=== PATIENT | male | born 1960 | race African-American/Black ===

== ENCOUNTER 2017-04-25 07:43 | Inpatient (IN) ==
[2017-04-25] MEDS ORDERED: ASPIRIN PO STA (08:10)
[2017-04-25 08:38] LABS: BASO% 0.1 % (0.0-0.8); EOS# 0.13 X1000 (0.0-0.7); EOS% 1.6 % (0.0-10.0); HEMOGLOBIN 15.8 g/dL (14.0-18.0); IMM GRAN# 0.02 X1000 (0.0-0.04); IMM GRAN% 0.3 % (0.0-0.5); LYMPH# 0.99 X1000 (1.2-3.4); LYMPH% 12.4 % (20.5-51.1); MANUAL DIFF NEEDED? NO; MCH 32.6 PG (27-31); MCHC 37.6 g/dL (33-37); MCV 86.8 FL (81-99); MONO# 0.76 X1000 (0.11-0.59); MONO% 9.5 % (1.7-9.3); MPV 9.9 FL (7.4-10.4); NEUT% 76.1 % (42.2-75.2); PLT 315 X1000 (130-400); RBC 4.84 XMIL (4.7-6.1)
[2017-04-25 08:41] LABS: INR 0.95; PROTIME 9.9 Seconds (9.2-11.7); PTT 28.7 Seconds (22.0-36.0)
[2017-04-25] MEDS ORDERED: ZOFRAN IV ONE ×2 (08:41→09:58)
[2017-04-25] MEDS ORDERED: TORADOL IV ONE (08:50)
--- NOTE | 2017-04-25 09:01 | EKG Report ---
Test Performed on : 04/25/2017 07:40:44 AM Test Reason : Chest Pain Blood Pressure : / mmHG Vent. Rate : 086 BPM Atrial Rate : 086 BPM P-R Int : 202 ms QRS Dur : 074 ms QT Int : 394 ms P-R-T Axes : 059 045 051 degrees QTc Int : 471 ms Normal sinus rhythm. Possible Left atrial enlargement Left ventricular hypertrophy Nonspecific T wave abnormality Prolonged QT Abnormal ECG When compared with ECG of 24-NOV-2010 14:37, Nonspecific T wave abnormality, worse in Anterior leads Unconfirmed Result
[2017-04-25 09:30] LABS: AGAP 22; ALBUMIN 4.5 g/dL (3.5-5.0); ALKALINE PHOSPHATASE 111 U/L (32-122); BUN 11 mg/dL (8-22); CALCIUM 9.9 mg/dL (8.8-10.2); CHLORIDE 67 mmol/L (98-107); CK PROFILE > 20000 U/L (24-204); COSMO 222; GOT 509 U/L (10-34); GPT 163 U/L (10-44); MAGNESIUM 1.8 mg/dL (1.5-2.7); POTASSIUM 3.5 mmol/L (3.5-5.1); TCO2 20 mmol/L (25-35); TOTAL BILIRUBIN 1.41 mg/dL (0.20-1.00); TOTAL PROTEIN 8.1 g/dL (6.3-8.3)
[2017-04-25 09:32] LABS: SODIUM 110 mmol/L (136-145)
--- NOTE | 2017-04-25 09:40 | ED EKG INTERP ---
This chart was entered by Kyara Hutchinson Scribe, acting as scribe for Nael Villarreal MD. EKG Interpretation - EKG Time of EKG reading by physician:: 07:40 EKG Read and Signed by:: Nael Villarreal EKG Interpretation (*Must complete 3 of following elements*): Abnormal Rate: 86 Rhythm: nsr [place]: left (atrial enlargment) QRS: other (left ventricular hypertrophy) OK Interval: prolonged ST Wave: non-specific ST changes Attestation - Physician/ JASPER Attestation The physician spent face to face time with patient:: Yes Advanced Practice Provider documentation review:: Supervising physician onsite and consulted in the evaluation and care of this patient. The physician did have a face to face encounter with the patient. This chart was documented by the indicated scribe, (Kyara Hutchinson Scribe) and accurately reflects the services I performed and decisions made by Cherelle carrington Christophe I, MD, as attested by the provider's signature.
[2017-04-25] MEDS ORDERED: NS 1,000 ML IV ONE ×2 (09:56→14:15)
[2017-04-25] MEDS ORDERED: DILAUDID IV ONE (09:58)
[2017-04-25 10:08] LABS: URINE CULTURE NEEDED? NO; URINE MICRO REVIEW NEEDED? NO; URINE SOURCE CLEAN CATCH
[2017-04-25] MEDS ORDERED: DILAUDID ONE (10:19)
[2017-04-25 10:28] LABS: BILIRUBIN URINE NEGATIVE (NEGATIVE); BLOOD URINE LARGE (NEGATIVE); COLOR YELLOW; GLUCOSE URINE NEGATIVE (NEGATIVE); LEUKOCYTES URINE NEGATIVE (NEGATIVE); NITRITE URINE NEGATIVE (NEGATIVE); PH URINE 7.5; PROTEIN URINE 30 mg/dL (NEGATIVE); SP GRAVITY URINE 1.007; TURBIDITY URINE CLEAR (CLEAR); UROBILINOGEN URINE NORMAL (NORMAL)
[2017-04-25 10:29] LABS: UR EPITHELIAL CELLS <10 /HPF (<10); URINE BACTERIA 1+ /HPF; URINE RBC <10 /HPF (<10); URINE WBC <10 /HPF (<10)
[2017-04-25 10:57] LABS: AGAP 19; ALBUMIN 4.6 g/dL (3.5-5.0); ALKALINE PHOSPHATASE 109 U/L (32-122); BUN 12 mg/dL (8-22); CALCIUM 9.3 mg/dL (8.8-10.2); CHLORIDE 71 mmol/L (98-107); COSMO 226; GOT 464 U/L (10-34); GPT 147 U/L (10-44); POTASSIUM 3.5 mmol/L (3.5-5.1); TCO2 21 mmol/L (25-35); TOTAL BILIRUBIN 1.47 mg/dL (0.20-1.00); TOTAL PROTEIN 7.8 g/dL (6.3-8.3)
[2017-04-25 11:03] LABS: SODIUM 111 mmol/L (136-145)
--- NOTE | 2017-04-25 11:03 | Diag Imaging Result Doc PS360 ---
EXAM: US GB < RUQ (LIMITED) HISTORY: lfts TECHNIQUE: Right upper quadrant ultrasound COMMENT: The visualized portions of the head of the pancreas are within normal limits. The visualized portions of the aorta and inferior vena cava are within normal limits. There is antegrade flow in the portal vein. There is no evidence of biliary dilatation the common bile duct measuring 7 mm. The liver is otherwise unremarkable. The gallbladder is clear and nontender. The right kidneys without evidence of hydronephrosis or mass. IMPRESSION: No evidence of acute disease. Electronically signed by Ezra Mittal 04/25/2017 11:00 AM
--- NOTE | 2017-04-25 11:51 | PROVIDER DOCUMENTATION ---
This chart was entered by Kyara Hutchinson Scribe, acting as scribe for Nael Villarreal MD. HPI-Chest Pain - General Chief Complaint: Chest Pain Stated Complaint: CHEST PAIN Time Seen by Provider: 04/25/17 08:10 Source: patient Allergies/Adverse Reactions: Patient Allergies Allergy/AdvReac Type Severity Reaction Status Date / Time No Known Allergies Allergy Verified 09/28/14 02:56 Home Medications: Home Medication List Medication Instructions Recorded Confirmed Last Taken Type Amlodipine Besylate [Amlodipine 10 mg PO DAILY 04/25/17 04/25/17 04/25/17 06:00 History Besylate] Citalopram [Celexa] 40 mg PO QHS 04/25/17 04/25/17 04/24/17 21:00 History Hydrocodone/Acetaminophen 1 each PO Q8H PRN 04/25/17 04/25/17 Unknown History [Hydrocodon-Acetaminophen 5-325] Losartan/Hydrochlorothiazide 1 each PO DAILY 04/25/17 04/25/17 04/25/17 06:00 History [Hyzaar 50-12.5 Tablet] Zolpidem Tartrate [Zolpidem 0.5 - 1 tab PO QHS PRN 04/25/17 04/25/17 Unknown History Tartrate] - History of Present Illness-CP Nature of Presenting Problem: 56 y/o M presents to ED per EMS. Pt was brought in today due to R sided chest pain. Pt states he also has abd pain with some N/V. Pt has had colon removed in the past. Pt is alert and oriented. Location: reports: abdomen, other (R side) Chest Pain Radiation: reports: no radiation Quality of Pain: reports: aching Severity in ED: mild Onset/Duration: just prior to arrival Timing: still present Context/Activities at Onset: reports: light activity Modifying Factors: improves with: nothing Associated Symptoms: reports: abdominal pain, nausea, vomiting. denies: fever/ chills, shortness of breath Aspirin Treatment Today: provided by EMS Review of Systems - Adult - REVIEW OF SYSTEMS - ADULT Constitutional: denies: chills, fever Cardiovascular: reports: chest pain. denies: palpitations Respiratory: denies: cough, shortness of breath Gastrointestinal: reports: abdominal pain, nausea, vomiting. denies: diarrhea Neurological: denies: dizziness/vertigo, headache/migraines Past History - Adult - PAST MEDICAL HISTORY-ADULT Review of Records: reports: Old Records Reviewed, Nursing Assessment Review Major Childhood Illnesses: reports: denies history Cardiovascular: reports: HTN Gastrointestinal: reports: GI bleed (upper), ulcer Musculoskeletal: reports: arthritis (Gout) - PRIOR SURGERIES/PROCEDURES Surgical/Procedure History: reports: bowel surgery, orthopedic (extremity) - IMMUNIZATION STATUS Childhood Immunizations: See Nurse Assessment Flu Vaccine: See Nurse Assessment - SOCIAL HISTORY Smoking: quit greater than 1 year Substance Use: alcohol Alcohol Use Frequency: occasionally Physical Exam-General - PHYSICAL EXAM-ADULT Initial Vital Signs Reviewed: Yes - CONSTITUTIONAL General Appearance: appears well, alert, no apparent distress - EYES Eyes: PERRL/EOMI, pink conjunctivae - HEAD, EARS, NOSE, MOUTH & THROAT HENMT: normocephalic/atraumatic, moist mucous membranes, normal ENT inspection - NECK Neck: non-tender, full range of motion - RESPIRATORY Respiratory: chest non-tender, lungs clear, normal breath sounds. negative: respiratory distress, decreased breath sounds, accessory muscle use - CARDIOVASCULAR Cardiovascular: normal peripheral pulses, regular rate, rhythm - GASTROINTESTINAL (ABDOMEN) Abdominal Exam: normal bowel sounds, non tender, soft. 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5 H Eos % (Auto) 1.6 Baso % (Auto) 0.1 Immature Gran # (Auto) 0.02 Neut # (Auto) 6.09 Lymph # (Auto) 0.99 L Barron # (Auto) 0.76 H Eos # (Auto) 0.13 Baso # (Auto) 0.01 PT INR PTT (Actin FS) Sodium 110 L* Potassium 3.5 Chloride 67 L Carbon Dioxide 20 L Anion Gap 22 BUN 11 Creatinine 1.1 Estimated GFR/1.73 m2 > 60 BUN/Creatinine Ratio 10 Glucose 118 H Calculated Osmolality 222 Calcium 9.9 Magnesium 1.8 Total Bilirubin 1.41 H AST 509 H ALT 163 H Alkaline Phosphatase 111 Creatine Kinase > 48415 H Creatine Kinase Index Not Reportable CK-MB (CK-2) 137.70 H Troponin T Vbi-P-Fguivxqigle Pept 16 Total Protein 8.1 Albumin 4.5 Globulin 3.6 Albumin/Globulin Ratio 1.3 Lipase Urine Source Urine Color Urine Turbidity Urine pH Ur Specific [place] Urine Protein Ur Glucose (Stick) Ur Ketones (Stick) Urine Blood Urine Nitrite Urine Bilirubin Urobilinogen Dipstick Urine Leukocytes Urine WBC (Auto) Urine RBC (Auto) U Epithel Cells (Auto) Urine Bacteria (Auto) 04/25/17 04/25/17 04/25/17 08:15 08:15 10:01 WBC RBC Hgb Hct MCV MCH MCHC RDW Std Deviation Plt Count MPV Immature Gran % (Auto) Neut % (Auto) Lymph % (Auto) Barron % (Auto) Eos % (Auto) Baso % (Auto) Immature Gran # (Auto) Neut # (Auto) Lymph # (Auto) Barron # (Auto) Eos # (Auto) Baso # (Auto) PT 9.9 INR 0.95 PTT (Actin FS) 28.7 Sodium Potassium Chloride Carbon Dioxide Anion Gap BUN Creatinine Estimated GFR/1.73 m2 BUN/Creatinine Ratio Glucose Calculated Osmolality Calcium Magnesium Total Bilirubin AST ALT Alkaline Phosphatase Creatine Kinase Creatine Kinase Index CK-MB (CK-2) Troponin T < 0.010 Gdn-Q-Maxzimeaivq Pept Total Protein Albumin Globulin Albumin/Globulin Ratio Lipase Urine Source CLEAN CATCH Urine Color YELLOW Urine Turbidity CLEAR Urine pH 7.5 Ur Specific [place] 1.007 Urine Protein 30 A Ur Glucose (Stick) NEGATIVE Ur Ketones (Stick) NEGATIVE Urine Blood LARGE A Urine Nitrite NEGATIVE Urine Bilirubin NEGATIVE Urobilinogen Dipstick NORMAL Urine Leukocytes NEGATIVE Urine WBC (Auto) <10 Urine RBC (Auto) <10 U Epithel Cells (Auto) <10 Urine Bacteria (Auto) 1+ 04/25/17 04/25/17 10:15 10:35 WBC RBC Hgb Hct MCV MCH MCHC RDW Std Deviation Plt Count MPV Immature Gran % (Auto) Neut % (Auto) Lymph % (Auto) Barron % (Auto) Eos % (Auto) Baso % (Auto) Immature Gran # (Auto) Neut # (Auto) Lymph # (Auto) Barron # (Auto) Eos # (Auto) Baso # (Auto) PT INR PTT (Actin FS) Sodium 111 L* Potassium 3.5 Chloride 71 L Carbon Dioxide 21 L Anion Gap 19 BUN 12 Creatinine 1.2 Estimated GFR/1.73 m2 > 60 BUN/Creatinine Ratio 10 Glucose 108 H Calculated Osmolality 226 Calcium 9.3 Magnesium Total Bilirubin 1.47 H AST 464 H ALT 147 H Alkaline Phosphatase 109 Creatine Kinase Creatine Kinase Index CK-MB (CK-2) Troponin T Mix-X-Ctfzwlmvxam Pept Total Protein 7.8 Albumin 4.6 Globulin 3.2 Albumin/Globulin Ratio 1.4 Lipase 38 Urine Source Urine Color Urine Turbidity Urine pH Ur Specific [place] Urine Protein Ur Glucose (Stick) Ur Ketones (Stick) Urine Blood Urine Nitrite Urine Bilirubin Urobilinogen Dipstick Urine Leukocytes Urine WBC (Auto) Urine RBC (Auto) U Epithel Cells (Auto) Urine Bacteria (Auto) Orders Category Date Time Status Cardiac Monitoring DIRECTED Care 04/25/17 08:10 Active Oxygen Therapy- ED Nursing DIRECTED Care 04/25/17 08:10 Active Saline Loc NOW Care 04/25/17 08:10 Active US GB < RUQ (LIMITED) [US] Stat Exams 04/25/17 09:55 Completed CBC WITH ELECTRONIC DIFF [HEME] Stat Lab 04/25/17 08:15 Completed CK PROFILE [SP CHEM] Stat Lab 04/25/17 08:15 Completed COMPREHENSIVE METABOLIC PANEL [CHEM] Stat Lab 04/25/17 08:15 Completed COMPREHENSIVE METABOLIC PANEL [CHEM] Stat Lab 04/25/17 10:15 Completed LIPASE [CHEM] Stat Lab 04/25/17 10:35 Completed MAGNESIUM [CHEM] Stat Lab 04/25/17 08:15 Completed PRO B-NATRIURETIC PEPTIDE Stat Lab 04/25/17 08:15 Completed PROTIME WITH INR [COAG] Stat Lab 04/25/17 08:15 Completed PTT [COAG] Stat Lab 04/25/17 08:15 Completed TROPONIN T Stat Lab 04/25/17 08:15 Completed URINALYSIS W/POSS RFLX CULT-1 [URINALYSIS] Stat Lab 04/25/17 10:01 Completed 0.9% Sodium Chloride Inj [Ns] 1,000 ml Med 04/25/17 09:56 Discontinued IV 999 mls/hr Aspirin Med 04/25/17 08:10 Discontinued 325 mg PO STAT STA Hydromorphone [Dilaudid] Med 04/25/17 09:58 Discontinued 0.5 mg IV NOW ONE Hydromorphone [Dilaudid] Med 04/25/17 10:19 Discontinued 2 mg .ROUTE .STK-MED ONE Ketorolac [Toradol] Med 04/25/17 08:50 Discontinued 30 mg IV NOW ONE Ondansetron [Zofran] Med 04/25/17 09:58 Discontinued 4 mg IV NOW ONE Ondansetron [Zofran] Med 04/25/17 08:41 Discontinued 8 mg IV NOW ONE EKG [EKG] Stat Ther 04/25/17 08:10 Draft PLAN: LABS , MONITOR PT Result Diagrams: 04/25/17 08:15 04/25/17 10:15 - CONSULTS/PCP/HOSPITALIST Notification #1 *Consult/PCP/Hospitalist*: (hospitalist NATURAL RESOURCE OFFICER ) Time Discussed: 11:47 Consult Disposition: Admit Departure - Departure Date of Disposition Decision: 04/25/17 Time of Disposition Decision: 11:49 DIAGNOSIS: Hyponatremia Disposition: ADMITTED INPATIENT 09 Certified Medical Emergency: Emergent Condition: Stable Referrals and Follow-Ups: Juan Alcala [Primary Care Provider] - - Critical Care Note This patient required my direct & personal management of CC.: Yes Total Time (mins): 30 Critical Care Statement: This patient required my direct personal management to treat or rule out processes, the absence of which, could potentiallly result in sudden, clinically significant life or limb threatening deterioration. Attestation - Physician/ JASPER Attestation The physician spent face to face time with patient:: Yes Advanced Practice Provider documentation review:: Supervising physician onsite and consulted in the evaluation and care of this patient. The physician did have a face to face encounter with the patient. This chart was documented by the indicated scribe, (Kyara Hutchinson Scribe) and accurately reflects the services I performed and decisions made by , Nael Villarreal MD, as attested by the provider's signature.
--- NOTE | 2017-04-25 12:51 | Diag Imaging Result Doc PS360 ---
EXAM: CT HEAD W/O CONTRAST HISTORY: ams TECHNIQUE: CT of the head without contrast COMMENT: Compared to 10/15/2012 the visualized portion of the left maxillary sinus is now clear. There is no evidence of mass effect, bleed, abnormal extra-axial fluid collection, or hydrocephalus. There is minimal lucency in the periventricular white matter of the frontal lobes particularly on the right which is not as appreciable on the previous study. IMPRESSION: No evidence of acute intracranial disease. Minimal chronic microvascular change. Electronically signed by Ezra Mittal 04/25/2017 12:49 PM
--- NOTE | 2017-04-25 12:55 | Diag Imaging Result Doc PS360 ---
EXAM: CT THORAX/ABD/PELVIS W/O CONT HISTORY: cp; abd pain; low na TECHNIQUE: CT chest without contrast. CT abdomen and pelvis without contrast. Dose reduction protocol. COMPARISON: None. FINDINGS: Chest: No pleural effusions. No cardiomegaly. No thoracic aortic aneurysm. Moderate coronary artery calcifications in the left anterior descending artery. There are scattered calcified granuloma and there are calcified right hilar lymph nodes. Minimal increased markings in the anterior lungs believed to be scarring. No consolidation. There is also scarring in the lung bases. No bronchiectasis. No pneumothoraces. There are old bilateral rib fractures. Abdomen and pelvis: No renal stones. Mild fullness of the upper right ureter. No ureteral stones. Several small stones within the gallbladder. No adjacent inflammation. Normal noncontrasted liver, spleen, and pancreas. Normal adrenal glands. There has been a gastric bypass procedure. Normal aorta. No bowel obstruction. There are small scattered mesenteric nodes in the right lower quadrant. No inflammation about the cecum. No abscess. A Cummins catheter has the urinary bladder decompressed. The prostate is not enlarged. IMPRESSION: Chest: 1. There is evidence of a prior granulomatous infection, but no acute pneumonia. 2. There is a small amount of scarring. 3. Old rib fractures. Abdomen and pelvis: 1. Cholelithiasis 2. Prior gastric bypass 3. Nonspecific mesenteric nodes in the right lower quadrant, but no inflammation about the cecum or abscess. Electronically signed by Jose Burciaga 04/25/2017 12:52 PM
[2017-04-25] MEDS ORDERED: NITROGLYCERIN TOP ONE (14:04)
[2017-04-25 15:07] LABS: UR AMPHETAMINES QUAL NONE DETECTED (NONE DETECT); UR BARBITUATES QUAL NONE DETECTED (NONE DETECT); UR BENZODIAZEPIN QUAL NONE DETECTED (NONE DETECT); UR CANNABINOIDS QUAL NONE DETECTED (NONE DETECT); UR COCAINE QUAL NONE DETECTED (NONE DETECT); UR METHADONE QUAL NONE DETECTED (NONE DETECT); UR OPIATES QUAL PRESUMPTIVE POSITIVE (NONE DETECT); UR OXYCODONE QUAL NONE DETECTED (NONE DETECT); UR PCP QUAL NONE DETECTED (NONE DETECT)
--- NOTE | 2017-04-25 15:44 | HISTORY AND PHYSICAL ---
PRIMARY CARE PROVIDER: No one. CHIEF COMPLAINT: Chest pain, abdominal pain. HISTORY OF PRESENT ILLNESS: Mr. Ezra Marks is a 56-year-old, male, with a medical history of rat poisoning, causing severe peptic ulcer disease, requiring small bowel resection, hypertension, gout, depression and chronic nausea, who states that, around 5 p.m. yesterday, started developing chest pain that radiated down both arms, causing tingling. Also caused nausea, vomiting and diaphoresis. The pain was intermittent, continued up until this morning. He called an ambulance to bring him here, due to being too weak. He denies any diarrhea. Denies fever or chills. Denies blood in the urine or stool. He states that he does have abdominal pain in the lower midline area, where he has an old incisional scar, and states that this pain is chronic in nature, along with the chronic nausea since his surgery. Initial evaluation revealed that he had a low sodium count, with the first set being 110, the second set being 111. He is not confused. He does have a different affect. He follows all commands. No seizure activity. He denies excessive alcohol use, although he drinks beer, he states, about 3 days a week, with the last being on Saturday. He also has an elevated CK greater than 20,000, and an MB of 137. Troponin is less than 0.01, and this is set 1. ProBNP is 16. He also had elevated liver enzymes. A Cummins has been placed. He has clear-yellow urine output, and is not dark. We will admit to the ICU for very close observation, continue to trend cardiac enzymes, replace sodium, and observe for signs of confusion and chest pain. PAST MEDICAL HISTORY: Hypertension, peptic ulcer disease, secondary to rat poisoning that he been given over a 9-month timeframe that caused a GI bleed, and is now status post small bowel resection. Gout, depression, chronic nausea and chronic abdominal pain. SURGICAL HISTORY: Small-bowel resection, maybe a gastrectomy, it is unclear. Bilateral total knee replacements, right arm pin. SOCIAL HISTORY: Denies tobacco. Drinks beer, 8 beers at the most, and states he only drinks about 3 days a week. Denies illicit drug use. , disabled, with 2 children. FAMILY HISTORY: Son had lymphoma at the age of 8, but is now in remission. He denies any cardiac history or other cancers in the family. He denies diabetes in the family. REVIEW OF SYSTEMS: Fourteen-point review of systems were complete and all were negative, except for those mentioned above in the HPI. ALLERGIES: No known drug allergies. HOME MEDICATIONS: Amlodipine 10 mg p.o. daily, Celexa 40 mg p.o. nightly, Mcneal 5 at 1 tab p.o. every 8 hours p.r.n., Hyzaar 1 tab p.o. daily, Ambien 5 mg to 10 mg p.o. nightly p.r.n. PHYSICAL EXAM: VITAL SIGNS: Temperature is 98.1 degrees, heart rate 81, respiratory rate 17, blood pressure 146/78, O2 saturation 96% on room air. He is 6 feet 0 inches tall, 162 pounds, BMI 22. GENERAL: Mr. Ezra Marks is a 56-year-old, male. He is in no acute distress. He is able answer questions appropriately. HEENT: Atraumatic, normocephalic. Pupils equal, round, reactive to light. Extraocular movements intact. Mucous membranes are dry. NECK: No JVD or carotid bruits noted. CARDIOVASCULAR: S1, S2. Regular rate and rhythm. No rubs, gallops, murmurs. PULMONARY: Clear to auscultation. Bilateral breath sounds. No accessory muscle use or work of breathing noted. GASTROINTESTINAL: Semi-firm, but has some muscle guarding. Tender in the lower midline area. Positive bowel sounds x4. States he has 1 bowel movement daily that is normal. EXTREMITIES: No edema noted. There are +2 dorsalis and radial pulses. NEUROLOGIC: Alert and oriented x4. Moves all extremities equally. Has an odd affect. SKIN: Warm, dry, intact. LABORATORY DATA: White blood cells 8000, hemoglobin 15, hematocrit 42, platelet count 315,000. INR 0.95, PTT is 28.7. Sodium 110 and 111, chloride 71, bicarb 21, BUN 12, creatinine is 1.2, glucose 108. Osmolality is 226. Calcium 9.3, magnesium 1.8, total bilirubin is 1.47, AST 464, ALT 147. CK greater than 20,000, MB is 137, troponin less than 0.01. ProBNP is 16. Triglycerides 116, total cholesterol is 172, LDL 73, HDL 96. Lipase 38, lactate 0.9. Urinalysis: 30 protein, large blood, 1+ bacteria. Alcohol 0. IMAGING: Chest, abdomen and pelvis CT: Chest CT showed evidence of prior granulomatous infection, but no acute pneumonia. A small mild scarring, old rib fractures. The abdominal and pelvic CT shows cholelithiasis from prior gastric bypass. Nonspecific mesenteric nodes in the right lower quadrant, but no inflammation about the cecum or abscess. Head CT: No evidence of acute intracranial disease. There are minimal chronic microvascular changes. Abdominal ultrasound; no acute disease. EKG: Normal sinus rhythm, rate is 86, QTc is 471. ASSESSMENT/PLAN: 1. Severe hyponatremia. Will do normal saline at 125 an hour. Repeat sodium in the morning. Monitor for altered mental status and confusion. Monitor for seizures. Chloride is also low. He is dehydrated. 2. Complaints of chest pain, rule out acute coronary syndrome. He does have a CK greater than 20,000, although the troponin is negative. Will do serial cardiac enzymes, nitroglycerin paste q.6h, and consult Cardiology. 3. Abdominal pain, although he states this is chronic. He does have some vomiting, but he feels this is associated with his chest pain that he has had on-and-off. Do antiemetics. 4. Hypertension. We will hold any diuretics. Hold antihypertensives for now. 5. Depression. 6. Deep venous thrombosis prophylaxis. Sequential compression devices. Dictated by DWAINE Resendiz for Ralf Nazario MD cc: DWAINE Resendiz MD
[2017-04-25] MEDS ORDERED: NITROGLYCERIN SL PRN (16:18)
[2017-04-25] MEDS ORDERED: TYLENOL PO PRN (16:18)
--- NOTE | 2017-04-25 16:40 | EKG Report ---
Test Performed on : 04/25/2017 4:30:22 PM Test Reason : chest pain Blood Pressure : / mmHG Vent. Rate : 086 BPM Atrial Rate : 086 BPM P-R Int : 204 ms QRS Dur : 074 ms QT Int : 368 ms P-R-T Axes : 055 041 046 degrees QTc Int : 440 ms Sinus rhythm. with occasional premature ventricular complexes. Moderate voltage criteria for LVH, may be normal variant Nonspecific T wave abnormality Abnormal ECG When compared with ECG of 25-APR-2017 07:40, (Unconfirmed) premature ventricular complexes. are now present Nonspecific T wave abnormality, improved in Anterior leads Confirmed by Adin Redding DO ([id number]) on 04/28/2017 8:43:23 AM
[2017-04-25] MEDS: MORPHINE IV PRN ×2 (17:06→21:29)
[2017-04-25] MEDS: SODIUM CHLORIDE 0.9% INJ SCH (17:06)
[2017-04-25] MEDS: SODIUM BICARBONATE 8.4% 150 MEQ in D5W 1,000 ML IV SCH (17:06)
[2017-04-25] MEDS: PROTONIX IV SCH (17:06)
[2017-04-25 18:30] LABS: AMYLASE 94 U/L (20-200); LIPASE 33 U/L (13-60)
[2017-04-25 18:43] LABS: CK-MB 69.21 ng/mL (0.0-5.0)
[2017-04-25] MEDS: ZOFRAN IV PRN (18:43)
[2017-04-25 18:44] LABS: CK PROFILE > 20000 U/L (24-204)
[2017-04-25 18:56] LABS: BUN 11 mg/dL (8-22); CALCIUM 9.1 mg/dL (8.8-10.2); CHLORIDE 74 mmol/L (98-107); COSMO 228; POTASSIUM 3.7 mmol/L (3.5-5.1); TCO2 21 mmol/L (25-35)
[2017-04-25 18:57] LABS: AGAP 17
[2017-04-25 18:59] LABS: SODIUM 112 mmol/L (136-145)
--- NOTE | 2017-04-25 20:50 | CONSULTATION ---
DATE OF CONSULTATION: 04/25/2017 CONSULTATION REQUESTED BY: Hospitalist Service. REASON FOR CONSULTATION: Elevated CPK, abnormal EKG, and chest pain. HISTORY: Mr. Marks is a 56-year-old black gentleman who presented to the emergency room on this day, April 25, at about 8 o'clock in the morning complaining of vague pain in the right side of the chest and the abdomen. He was nauseous. He had been taking little oral intake. Upon presentation to the hospital, they did an electrocardiogram on him that showed sinus rhythm without any acute ischemic changes. It only demonstrated some nonspecific T wave abnormality in the inferior lateral leads with voltage criteria for LVH. A chest x-ray was not reported. They went ahead and they did a CT scan of the abdomen, pelvis, and head. The CT scan of the chest shows evidence of prior granulomatous infection, no acute pneumonia, small amount of scarring, old rib fractures. The abdomen and pelvis shows cholelithiasis, prior gastric bypass, nonspecific mesenteric nodes. Abdominal ultrasound shows no evidence of acute disease. In fact, the gallbladder is clear and nontender. His blood work on the other hand showed an initial sodium level of 110 mEq per L. This was at 8:15. Subsequently it went up to 111 and then 112. His chloride was 74, carbon dioxide 21, bilirubin 1.47, glucose 121, AST 464, ALT 147. CK greater than 20,000, CK MB fraction 69.21, troponin less than 0.010. ProBNP negative at 16. Albumin 4.6, globulin 3.2. Lipids showed triglycerides of 77, cholesterol 159, LDL 64. His urine showed a specific gravity of 1.007, large amount of blood noted consistent with rhabdomyolysis. The toxic drug screen only yielded opiates. Alcohol level was zero. The patient at the time of my evaluation, which was close to 7:30 or 8 o'clock tonight, is conversant. He was on the phone talking to his children. He appears to be awake, cooperative. He is not in any distress. He has no pain anywhere except for intermittent pain in the lower back. PAST MEDICAL AND SURGICAL HISTORY: His past history is positive for hypertension, gout. He has had GI bleeding and previous abdominal surgery that reportedly included a gastric bypass. He has had no issues with diabetes. ALLERGIES: He has no reported allergies. FAMILY HISTORY: Family history is noncontributory. SOCIAL HISTORY: He is retired. Drinks beer occasionally. MEDICATIONS: As far as prescription medicines, he has been taking Celexa, amlodipine, losartan, hydrocodone, Zolpidem. REVIEW OF SYSTEMS: His review of systems is noncontributory. The patient has had gout and he has had also bilateral knee replacement in the past. He is being treated for hypertension by Dr. Juan Alcala who is his primary physician. PHYSICAL EXAMINATION: Vital signs: Right now blood pressure is 163/88. Temperature 98.3. Pulse 90. Respirations 23. General: He is awake in no distress. HEENT: No obvious lesions. Chest: Sounds clear to auscultation and percussion. Cardiac: Heart sounds are regular and rhythmic. I do not hear any gallop or murmur. Abdomen: Soft, nontender. No hepatomegaly is noted. Extremities: Showed good pulse. There is no peripheral edema. Neurologic: He follows commands. Moves four extremities. LABORATORY DATA: Telemetry shows sinus rhythm with PVCs that sometimes appears as a bigeminy or trigeminy pattern. IMPRESSION: 1. Patient presenting with vague abdominal and chest pain. This pain is noncardiac. Elevation of CPK is noncardiac. It is consistent with rhabdomyolysis. 2. Profound hyponatremia. This probably is dilutional and also due to gastric loss (hypochloremia?). The patient apparently was vomiting quite a bit. 3. History of hypertension. Right now blood pressure is okay. 4. History of gouty arthritis. RECOMMENDATIONS: At this point in time, I would suggest to alkalinize his urine with dextrose 5% bicarbonate. That would help to prevent acute renal failure. His sodium needs to be gradually treated with either hypertonic saline or tolvaptan. I would strongly recommend to get a nephrology consultation to assist in this case. Normal saline won't correct severe hyponatremia. Regarding his heart, his EKG is really nonspecific, consistent with LVH from long-term hypertension. CT scan of the chest showed a couple of areas of calcification in the LAD, however, his presentation is clearly noncardiac. An echocardiogram has been done this afternoon that shows a hyperdynamic left ventricle without any evidence of any wall motion abnormality. At this point in time, we will not follow this patient until his metabolic status is completely stabilized by the primary service and the nephrology service, and if there is a need for any specific additional cardiac intervention due to development of suspicious symptoms. At this point in time his entire presentation is noncardiac. cc: Miah Suero MD MTDD
--- NOTE | 2017-04-25 22:53 | ECHO REPORT ---
ORDER DATE: 04/25/2017 MEASUREMENTS: Left ventricular end-diastolic diameter 3.3, end systolic diameter 2, septal thickness 1.4, left atrium 2.4, aortic root 3. SUMMARY: 1. Technically difficult study due to limited acoustic window quality. Intravenous echo contrast agent Definity was utilized to enhance endocardial definition for purposes of assessing left ventricular systolic function and wall motion. 2. Aortic valve is sclerotic, but opens adequately on 2-dimensional images with peak gradient less than 10 mmHg. There is mild aortic regurgitation. Mitral, tricuspid, and pulmonic valves are without evidence of structural abnormality. The aortic root is normal size. 3. Normal left ventricular chamber size with mild concentric left ventricular hypertrophy is suggested. Estimated left ventricular ejection fraction appears to be greater than 70%. No regional wall motion abnormalities evident. Doppler suggests grade 1 left ventricular diastolic dysfunction. Left atrium, right atrium, right ventricle are normal in size with normal right ventricular systolic function. 4. No pericardial effusion. 5. Appearance of inferior vena cava, no pericardial effusion. 6. Inferior vena cava not well demonstrated. 7. Sinus rhythm during study. CONCLUSIONS: 1. Technically difficult study. 2. Aortic valve sclerosis without stenosis with mild aortic regurgitation. 3. Mild concentric left ventricular hypertrophy with estimated left ventricular ejection fraction at least 70%. 4. Grade 1 left ventricular diastolic dysfunction. cc: MD Sima Monroe CRNP
[2017-04-25 23:27] LABS: BUN 10 mg/dL (8-22); CALCIUM 9.3 mg/dL (8.8-10.2); CHLORIDE 76 mmol/L (98-107); POTASSIUM 3.8 mmol/L (3.5-5.1); TCO2 25 mmol/L (25-35)
[2017-04-25 23:28] LABS: AGAP 14; COSMO 233
[2017-04-25 23:31] LABS: SODIUM 115 mmol/L (136-145)
[2017-04-26] MEDS: ZOFRAN IV PRN ×3 (00:53→15:57)
[2017-04-26] MEDS: MORPHINE IV PRN ×4 (00:53→15:58)
[2017-04-26] MEDS: SODIUM BICARBONATE 8.4% 150 MEQ in D5W 1,000 ML IV SCH (04:52)
[2017-04-26 05:52] LABS: INR 0.96
[2017-04-26 06:23] LABS: AGAP 15; ALBUMIN 4.4 g/dL (3.5-5.0); ALKALINE PHOSPHATASE 104 U/L (32-122); BUN 10 mg/dL (8-22); CHLORIDE 77 mmol/L (98-107); COSMO 243; GOT 288 U/L (10-34); GPT 127 U/L (10-44); POTASSIUM 3.3 mmol/L (3.5-5.1); TCO2 28 mmol/L (25-35); TOTAL BILIRUBIN 0.85 mg/dL (0.20-1.00); TOTAL PROTEIN 7.4 g/dL (6.3-8.3)
[2017-04-26 06:24] LABS: SODIUM 120 mmol/L (136-145)
[2017-04-26 06:35] LABS: BASO% 0.3 % (0.0-0.8); EOS# 0.26 X1000 (0.0-0.7); EOS% 4.2 % (0.0-10.0); HEMATOCRIT 37.5 % (42.0-52.0); HEMOGLOBIN 13.8 g/dL (14.0-18.0); LYMPH# 1.21 X1000 (1.2-3.4); LYMPH% 19.5 % (20.5-51.1); MANUAL DIFF NEEDED? NO; MCH 32.9 PG (27-31); MCHC 36.8 g/dL (33-37); MCV 89.5 FL (81-99); MONO# 0.69 X1000 (0.11-0.59); MONO% 11.1 % (1.7-9.3); MPV 10.3 FL (7.4-10.4); NEUT% 64.9 % (42.2-75.2); PLT 300 X1000 (130-400); RBC 4.19 XMIL (4.7-6.1)
[2017-04-26] MEDS ORDERED: PRILOSEC PO SCH (07:00)
[2017-04-26 07:32] LABS: CK INDEX 0.2 (0.0-2.5); CK-MB 35.95 ng/mL (0.0-5.0)
--- NOTE | 2017-04-26 07:39 | EKG Report ---
Test Performed on : 04/26/2017 06:00:50 AM Test Reason : dyspnea Blood Pressure : / mmHG Vent. Rate : 086 BPM Atrial Rate : 086 BPM P-R Int : 182 ms QRS Dur : 070 ms QT Int : 394 ms P-R-T Axes : 065 043 044 degrees QTc Int : 471 ms Sinus rhythm. with occasional premature ventricular complexes. Minimal voltage criteria for LVH, may be normal variant Nonspecific T wave abnormality Abnormal ECG When compared with ECG of 25-APR-2017 16:30, (Unconfirmed) No significant change was found Confirmed by Adin Redding DO ([id number]) on 04/28/2017 12:40:37 PM
[2017-04-26] MEDS: ASPIRIN PO SCH (08:34)
--- NOTE | 2017-04-26 10:12 | CONSULTATION ---
DATE OF CONSULTATION: 04/26/2017 REASON FOR CONSULTATION: Rhabdomyolysis and hyponatremia. HISTORY OF PRESENT ILLNESS: Mr. Marks is a 56-year-old man with a history of GI surgeries in the past. He states that for about 2 days, he was having nausea and vomiting and abdominal pain. He has some of the symptoms chronically but it was much worse over that period of time. He also developed chest pain that radiated into both arms and was associated with diaphoresis. When the chest discomfort began, he was transported to the hospital. He is unable to relate any trauma, falls or prolonged immobilization. He does drink alcohol but he states that the volume is moderate. He states he drinks as much as 6 [place] on a weekend day but very little during the week. In this context, he was seen in the emergency room where he was diagnosed with profound hyponatremia, as well as markedly elevated CKs suggestive of rhabdomyolysis. He has been treated with bicarbonate-containing IV fluids and overnight, his sodium has improved progressively from 110 to 120 over a 20-hour period of time. His CK has fallen from greater than 20,000 to 16,000. PAST MEDICAL HISTORY: As above. History of peptic ulcer disease. He relates a story of poisoning with "rat poison" in 2007. Gout, depression, chronic nausea. HOME MEDICATIONS: Amlodipine, Celexa, [place], Hyzaar, Ambien. ALLERGIES: None. SOCIAL HISTORY: As above. He has 2 children. He lives with a roommate. Estranged from his . FAMILY HISTORY: Noncontributory. REVIEW OF SYSTEMS: Otherwise noncontributory. PHYSICAL EXAMINATION: Vital Signs: Blood pressure 152/85, heart rate 83, respirations 20, afebrile. Intake 1.5 L. Output 3.5 L. General: No acute distress. Skin: Warm and dry. HEENT: Conjunctivae are pink. Pupils are equal. Oropharynx is clear. Normal tongue. Normal dentition. Neck: Supple. Trachea is midline. No jugular venous distention. Heart: Regular with an S4. No S3. Lungs: Have equal breath sounds. No crackles or wheezes. Abdomen: Soft, nontender. Bowel sounds are present. No palpable organomegaly or bruits. Extremities: Have no edema, clubbing, or cyanosis. IMPRESSION: 1. Hyponatremia. Urine osmolality was low at 207. This suggests dilutional hyponatremia. His sodium has responded nicely to IV fluids. No other evaluation is required. 2. Rhabdomyolysis. CK is improving. Given the bicarbonate shortage, we will change his fluids to acetate once his current bag is complete. cc: Asad Gutierrez MD
[2017-04-26 11:18] LABS: SODIUM 121 mmol/L (136-145)
[2017-04-26] MEDS: LIBRIUM PO SCH ×2 (11:25→18:07)
[2017-04-26 11:26] LABS: HEPATITIS PROFILE ACUTE SEE COMMENTS
[2017-04-26 11:27] LABS: POTASSIUM 3.2 mmol/L (3.5-5.1)
[2017-04-26 11:28] LABS: AGAP 13; ALBUMIN 4.6 g/dL (3.5-5.0); ALKALINE PHOSPHATASE 107 U/L (32-122); BUN 9 mg/dL (8-22); CALCIUM 9.2 mg/dL (8.8-10.2); CHLORIDE 76 mmol/L (98-107); COSMO 241; GOT 272 U/L (10-34); GPT 133 U/L (10-44); TCO2 30 mmol/L (25-35); TOTAL BILIRUBIN 0.66 mg/dL (0.20-1.00); TOTAL PROTEIN 7.7 g/dL (6.3-8.3)
--- NOTE | 2017-04-26 11:29 | PROGRESS NOTE ---
DATE: 04/26/2017 SUBJECTIVE: Patient reports feeling fine. Denies any headache. No seizures reported per nursing staff. No fever or chills. OBJECTIVE: Vital Signs: Temperature 99.9 degrees, heart rate 91, respiratory 15, blood pressure 137/79 and O2 saturation 97% on room air. General examination: This is a 56-year-old male, lying in bed, in no acute distress. HEENT: Head is normocephalic, atraumatic. Anicteric sclerae and pale conjunctivae. Mucous membranes moist. Neck: Supple. No JVD noted. No carotid bruits. No lymphadenopathy. No thyromegaly. Cardiovascular: S1, S2 heard. No murmurs, gallops, or rubs. Regular rate and rhythm. Respiratory: Clear bilaterally to auscultation. No work of breathing or using accessory muscles. Abdomen: Soft, nontender to palpation. Bowel sounds present. No organomegaly. Extremities: No clubbing, cyanosis, or edema. Peripheral pulses present in both legs. Neurological: Patient alert and oriented x3. Moves 4 extremities. Cranial nerves 2-12 grossly normal. LABORATORY DATA: The last labs from today at 4 a.m. shows sodium 120 with potassium 3.3, and AST 288 with ALT 127. CK is 16,000. ASSESSMENT AND PLAN: 1. Severe hyponatremia. Labs are more consistent with dilutional hyponatremia and patient has been started on IV fluids. Then the fluid has been changed to bicarbonate 3 because of rhabdomyolysis. Now he is going to have dextrose acetate as per renal recommendations. We are going to check CBC now and also tomorrow morning. The increased sodium was not higher than 25 during the last 24 hours which is good. We are going to continue to monitor this patient closely. 2. Chest pain. Actually this patient did not complain of chest pain. He was complaining of abdominal pain. The CK was really high. Consider rhabdomyolysis and of course, the partial fraction with CK-MB was high as well. Cardiology was consulted. He does not think that this patient has any cardiac issues at all. 3. Abdominal pain: This patient has not been vomiting recently. He reports pain in the pelvic area but CT of chest, abdomen and pelvis did not show anything, just cholelithiasis but he is not hurting in the right upper quadrant. He also had a prior gastric bypass and nonspecific mesenteric nodes in the right lower quadrant but there is no inflammation about the cecum or abscess. In any case, because of the elevated liver function tests will do an abdominal ultrasound. We will go from there. 4. Hypertension. Blood pressure is well controlled. We will continue with the same management. 5. Depression. We will continue home medications. 6. Deep vein thrombosis prophylaxis. On SCD. AT This point in time, patient is more stable so we are going to transfer him out of the unit today. We will consult physical therapy. We will go from there. cc: Ralf Nazario MD
[2017-04-26] MEDS: LIORESAL PO SCH ×2 (13:19→21:45)
[2017-04-26] MEDS ORDERED: NORCO-5 PO PRN (13:39)
[2017-04-26] MEDS: SODIUM CHLORIDE 0.9% INJ SCH (15:57)
[2017-04-26] MEDS: PROTONIX IV SCH (15:57)
[2017-04-26] MEDS: SODIUM ACETATE 150 MEQ in D5W 1,000 ML IV SCH (18:08)
[2017-04-26] MEDS: CELEXA PO SCH (21:45)
[2017-04-27] MEDS: LIBRIUM PO SCH ×4 (00:46→16:44)
[2017-04-27] MEDS: SODIUM ACETATE 150 MEQ in D5W 1,000 ML IV SCH ×3 (04:46→17:58)
[2017-04-27 06:30] LABS: AGAP 12; ALBUMIN 4.1 g/dL (3.5-5.0); ALKALINE PHOSPHATASE 107 U/L (32-122); BUN 10 mg/dL (8-22); CALCIUM 9.2 mg/dL (8.8-10.2); CHLORIDE 77 mmol/L (98-107); COSMO 249; GOT 167 U/L (10-34); GPT 115 U/L (10-44); POTASSIUM 3.3 mmol/L (3.5-5.1); SODIUM 124 mmol/L (136-145); TCO2 35 mmol/L (25-35); TOTAL BILIRUBIN 0.57 mg/dL (0.20-1.00); TOTAL PROTEIN 7.2 g/dL (6.3-8.3)
[2017-04-27] MEDS: ASPIRIN PO SCH (10:56)
[2017-04-27] MEDS: LIORESAL PO SCH ×3 (10:56→16:44)
[2017-04-27] MEDS: NORVASC PO SCH (10:56)
[2017-04-27] MEDS: MORPHINE IV PRN ×2 (10:57→14:21)
--- NOTE | 2017-04-27 11:38 | PROGRESS NOTE ---
DATE: 04/27/2017 SUBJECTIVE: Patient reports feeling fine. She is more alert and awake today. OBJECTIVE: Vital Signs: Temperature 98.5 degrees, heart rate 72, respiratory rate 20, blood pressure 139/66, O2 saturation 94% on room air. General: Examination reveals a 56-year-old, male, lying in bed in no acute distress. HEENT: Head is normocephalic, atraumatic. Anicteric sclerae and pale conjunctivae. Mucous membranes moist. Neck: Supple. No JVD noted. No carotid bruits. No lymphadenopathy. No thyromegaly. Cardiovascular exam: S1, S2 heard. No murmurs, gallops or rubs. Regular rate and rhythm. Respiratory exam: Clear bilaterally to auscultation. No work of breathing or using accessory muscles. Abdomen: Soft, nontender to palpation. Bowel sounds present. No organomegaly. Extremities: No clubbing, cyanosis, or edema. Peripheral pulses present in both legs. Neurological exam: Patient is alert and oriented x3. Moves 4 extremities. LABORATORY DATA: The BMP shows sodium 124, potassium 3.3, chloride 77. CK 6800. ASSESSMENT AND PLAN: 1. Severe hyponatremia. The patient's sodium is improving daily. We will continue with intravenous fluids in this case, dextrose acetate as per renal recommendations. At this point, we are going to continue with the same management. 2. Rhabdomyolysis. CK continues to improve. Renal function is okay. We will continue with the same management. 3. Chest pain. Patient is not complaining of any chest pain, and troponin has been negative and evaluated by cardiology. There is no cardiac pathology that this patient has at this time. 4. Abdominal pain. The patient has a history of prior gastric bypass. The CT showed some nonspecific mesenteric nodes in the right lower quadrant. Clinically, patient is doing better. Not complaining of any pain right now. 5. Hypertension. Blood pressure is well controlled. We will continue with the same management. 6. Depression. We will continue home medications. 7. Deep vein thrombosis prophylaxis on sequential compression device. cc: Ralf Nazario MD
[2017-04-27] MEDS: POTASSIUM CHLORIDE 20 MEQ/SWI 20 MEQ/100 ML IVPB IV SCH ×2 (13:19→16:43)
[2017-04-27] MEDS: ZOFRAN IV PRN (14:23)
[2017-04-27] MEDS: PROTONIX IV SCH (16:44)
[2017-04-27] MEDS: NORCO-7.5 PO PRN (16:45)
[2017-04-27] MEDS: CELEXA PO SCH (22:12)
[2017-04-28] MEDS: LIBRIUM PO SCH ×6 (00:20→22:41)
[2017-04-28] MEDS: SODIUM ACETATE 150 MEQ in D5W 1,000 ML IV SCH ×3 (00:21→20:48)
[2017-04-28] MEDS: MORPHINE IV PRN ×3 (05:50→17:11)
[2017-04-28 06:58] LABS: AGAP 14; ALBUMIN 4.1 g/dL (3.5-5.0); ALKALINE PHOSPHATASE 107 U/L (32-122); BUN 9 mg/dL (8-22); CALCIUM 9.9 mg/dL (8.8-10.2); CHLORIDE 78 mmol/L (98-107); COSMO 256; GOT 93 U/L (10-34); GPT 96 U/L (10-44); POTASSIUM 3.5 mmol/L (3.5-5.1); SODIUM 128 mmol/L (136-145); TCO2 36 mmol/L (25-35); TOTAL BILIRUBIN 0.48 mg/dL (0.20-1.00); TOTAL PROTEIN 7.2 g/dL (6.3-8.3)
[2017-04-28] MEDS: NORVASC PO SCH (09:02)
[2017-04-28] MEDS: ASPIRIN PO SCH (09:02)
[2017-04-28] MEDS: LIORESAL PO SCH ×3 (09:02→17:12)
[2017-04-28] MEDS: NORCO-7.5 PO PRN ×2 (09:23→14:07)
[2017-04-28] MEDS: SODIUM CHLORIDE 0.9% INJ SCH (17:12)
[2017-04-28] MEDS: PROTONIX IV SCH (17:12)
[2017-04-28] MEDS: CELEXA PO SCH (20:47)
[2017-04-28] MEDS: ZOFRAN IV PRN (22:39)
[2017-04-29] MEDS: MORPHINE IV PRN ×3 (03:43→13:37)
[2017-04-29] MEDS: ZOFRAN IV PRN ×2 (03:49→13:37)
[2017-04-29] MEDS: SODIUM ACETATE 150 MEQ in D5W 1,000 ML IV SCH (04:46)
[2017-04-29] MEDS: LIBRIUM PO SCH ×4 (04:47→16:56)
--- NOTE | 2017-04-29 06:26 | PROGRESS NOTE ---
DATE: 04/28/2017 SUBJECTIVE: Patient reports feeling fine. He is more alert and awake. OBJECTIVE: Vital Signs: Temperature 98.9 degrees, heart rate 71, respiratory 18, blood pressure 111/59, O2 saturation 100% on room air. General Examination: This is a 56-year-old male lying in bed in no acute distress. HEENT: Head is normocephalic, atraumatic. Neck: Supple. No JVD noted. No carotid bruits. Cardiovascular: S1, S2 heard. No murmurs, gallops, rubs and regular rate and rhythm. Respiratory: Clear bilaterally to auscultation. No work of breathing or using accessory muscles. Abdomen: Soft, nontender to palpation. Bowel sounds present. No organomegaly. Extremities: No clubbing, cyanosis, or edema. Peripheral pulses present both legs. Neurological exam: Patient alert, oriented x2 and patient moved 4 extremities. ASSESSMENT AND PLAN: 1. Severe hyponatremia, the condition continues to improve daily and the last sodium that we have is 128 which rest basic metabolic panel normal and AST and ALT has recovered nicely from 464 at admission to 93 AST and the ALT 147 admission and ALT 96. CK also has dropped dramatically from 20,000 to 29,000. At this point will continue with same management. 2. Rhabdomyolysis. We mentioned before CK continues to improve. okay will continue with same management. 3. Chest pain resolved. Evaluated by Cardiology, signed off. 4. Hypertension. Blood pressure is well controlled. Will continue with the same management. 5. Depression. Will continue home medications. 6. Deep vein thrombosis prophylaxis with SCDs. 7. Physical deconditioning. I request a physical therapy consultation and I do not see any note in the chart. Will talk to them to see this patient really needs to go to rehab facility or he may need home health. Will see what they have to say. cc: Ralf Nazario MD
--- NOTE | 2017-04-29 06:32 | EKG Report ---
Test Performed on : 04/28/2017 06:29:18 AM Test Reason : dyspnea Blood Pressure : / mmHG Vent. Rate : 068 BPM Atrial Rate : 068 BPM P-R Int : 148 ms QRS Dur : 090 ms QT Int : 452 ms P-R-T Axes : 028 047 064 degrees QTc Int : 480 ms Normal sinus rhythm. Nonspecific T wave abnormality Abnormal ECG When compared with ECG of 27-APR-2017 06:10, (Unconfirmed) AR interval has decreased Nonspecific T wave abnormality no longer evident in Inferior leads Nonspecific T wave abnormality has replaced inverted T waves in Lateral leads Confirmed by Adin Redding DO ([id number]) on 05/02/2017 7:57:53 AM
[2017-04-29 07:04] LABS: AGAP 11; ALBUMIN 4.2 g/dL (3.5-5.0); ALKALINE PHOSPHATASE 104 U/L (32-122); BUN 7 mg/dL (8-22); CALCIUM 9.4 mg/dL (8.8-10.2); CHLORIDE 76 mmol/L (98-107); COSMO 253; GOT 57 U/L (10-34); GPT 79 U/L (10-44); POTASSIUM 3.1 mmol/L (3.5-5.1); SODIUM 126 mmol/L (136-145); TCO2 39 mmol/L (25-35); TOTAL BILIRUBIN 0.54 mg/dL (0.20-1.00); TOTAL PROTEIN 7.6 g/dL (6.3-8.3)
[2017-04-29] MEDS ORDERED: SAMSCA PO ONE (07:16)
--- NOTE | 2017-04-29 07:20 | EKG Report ---
Test Performed on : 04/27/2017 06:10:45 AM Test Reason : dyspnea Blood Pressure : / mmHG Vent. Rate : 068 BPM Atrial Rate : 068 BPM P-R Int : 214 ms QRS Dur : 078 ms QT Int : 420 ms P-R-T Axes : 060 042 082 degrees QTc Int : 446 ms Sinus rhythm. with 1st degree AV block. Minimal voltage criteria for LVH, may be normal variant ST \T\ T wave abnormality, consider anterolateral ischemia Abnormal ECG When compared with ECG of 26-APR-2017 06:00, (Unconfirmed) premature ventricular complexes. are no longer present MT interval has increased T wave inversion now evident in Anterior leads Confirmed by Adin Redding DO ([id number]) on 04/29/2017 6:18:38 PM
[2017-04-29] MEDS ORDERED: POTASSIUM CHLORIDE 60 MEQ in NS 500 ML IV ONE (08:00)
[2017-04-29] MEDS ORDERED: LIBRIUM PO SCH (09:00)
[2017-04-29] MEDS: ASPIRIN PO SCH (09:59)
[2017-04-29] MEDS: LIORESAL PO SCH ×3 (09:59→16:56)
[2017-04-29] MEDS: NORVASC PO SCH (09:59)
--- NOTE | 2017-04-29 14:04 | PROGRESS NOTE ---
DATE: 04/29/2017 The patient is on. Pam number sickle #[id number] toe raise the provisional for patient Ezra Marks next number all date of all was 2016. SUBJECTIVE: Patient reports feeling fine. He is awake today. Sometimes he has some unrelated flashback conversation for something related to his health issues. He looks to have a flat affect. OBJECTIVE: Vital Signs: Temperature 98.0 degrees, heart rate 110, respiratory rate 18, blood pressure 123/72, O2 saturation 100% on room air. General Examination: This is a 56-year-old, male, lying in bed, in no acute distress. HEENT: Head is normocephalic, atraumatic. Anicteric sclerae and pale conjunctivae. Mucous membranes moist. Neck: Supple. No JVD noted. No carotid bruits. No lymphadenopathy. No thyromegaly. Cardiovascular: S1, S2 heard. No murmurs, gallops, or rubs. Regular rate and rhythm. Respiratory Examination: Clear bilaterally to auscultation. No work of breathing or using accessory muscles. Abdomen: Soft, nontender to palpation. Bowel sounds present. No organomegaly. Extremities: No clubbing, cyanosis, or edema. Peripheral pulses present in both legs. Neurological Examination: The patient is alert and oriented to move 4 extremities. LABORATORY DATA: Showed a sodium 136, potassium 3.1, chloride 76, respiratory rate 39. BUN 7, creatinine 1.1. The CK is 1388 today. ASSESSMENT AND PLAN: 1. Severe hyponatremia. That condition is improving daily, although the sodium which was 128 yesterday . I think the patient is doing fine. At this point, because apparently the patient is drinking enough water, and also the patient is still getting IV fluids, we stop for today. Will use 1 dose of [place] because this is dilutional hyponatremia and we will see how he does. 2. Rhabdomyolysis. From 20,000, CK has dropped to 13,099, so this patient is improving definitely. We are going to check CK daily. 3. Chest pain, resolved; however cardiology have signed off. 4. Hypertension. Blood pressure is under control. We will continue with the same management. 5. Depression. We will continue home medications. 6. Physical deconditioning. I am going to talk to physical therapy today and they mentioned that they were working with this patient, but they did not try to walk him, but surprisingly the patient reports that he was able to walk 30 steps with them. In any case, patient looks weak to me so specified physical therapy to try to get him up and try to walk round and let us know. If he is able to walk by himself and numbers are much better, we may safely discharge this patient home with home health. cc: Ralf Nazario MD
[2017-04-29] MEDS: PROTONIX IV SCH (16:55)
[2017-04-29] MEDS: NORCO-7.5 PO PRN ×2 (16:55→22:41)
[2017-04-29] MEDS: CELEXA PO SCH (22:40)
[2017-04-30] MEDS: NORCO-7.5 PO PRN (04:06)
[2017-04-30 06:21] LABS: AGAP 12; ALBUMIN 3.3 g/dL (3.5-5.0); ALKALINE PHOSPHATASE 137 U/L (32-122); BUN 17 mg/dL (8-22); CHLORIDE 86 mmol/L (98-107); COSMO 266; GOT 54 U/L (10-34); GPT 76 U/L (10-44); POTASSIUM 3.6 mmol/L (3.5-5.1); SODIUM 132 mmol/L (136-145); TCO2 34 mmol/L (25-35); TOTAL PROTEIN 6.5 g/dL (6.3-8.3)
[2017-04-30] MEDS: LIORESAL PO SCH ×2 (09:20→13:55)
[2017-04-30] MEDS: ASPIRIN PO SCH (09:20)
[2017-04-30] MEDS: NORVASC PO SCH ×2 (09:20→09:21)
[2017-04-30] MEDS: ZOFRAN IV PRN (09:20)
[2017-04-30] MEDS: LIBRIUM PO SCH ×2 (09:25→13:56)
[2017-04-30] MEDS ORDERED: SAMSCA PO ONE (09:53)
[2017-04-30] MEDS ORDERED: NORVASC PO SCH (09:54)
--- NOTE | 2017-04-30 11:26 | Diag Imaging Result Doc PS360 ---
EXAM: FOOT COMPLETE LEFT HISTORY: left foot pain TECHNIQUE: Three views COMPARISON: None. FINDINGS: No fracture. No dislocation. There are long-standing arthritic changes with joint space narrowing at the first metatarsal phalangeal joint and the interphalangeal joint of the great toe. IMPRESSION: Arthritis at the first metatarsal phalangeal joint and within the great toe. Electronically signed by Jose Burciaga 04/30/2017 11:24 AM
[2017-04-30 11:35] VITALS: BP 110/75
[2017-04-30 12:46] LABS: ALLEN TEST YES; BE 11.4 mmoll (-3.0-3.0); BLOOD TYPE ARTERIAL; DRAW SITE R RADIAL; METHB 1.5 % (0.0-1.5); MODALITY ROOM AIR; O2(CT) 16.3 mL/dL (15.0-23.0); PO2(98.6) 73 mmHg (60-100); SAMPLE BLOOD; THB 12.3 g/dL (11.5-17.4); pH(98.6) 7.46 (7.35-7.45)
[2017-04-30 12:50] LABS: PCO2(98.6) 52 mmHg (35-45)
[2017-04-30] MEDS: MORPHINE IV PRN (13:56)
--- NOTE | 2017-04-30 18:11 | DISCHARGE SUMMARY ---
ADMISSION DATE: 04/25/2017 DISCHARGE DATE: 04/30/2017 CONSULTATIONS: 1. Dr. Suero with Cardiology. 2. Dr. Asad Gutierrez with Nephrology. PERTINENT PROCEDURES: 1. Abdominal ultrasound showed no evidence of acute disease. 2. Chest, abdomen and pelvis CT showed evidence of prior granulomatosis infection, but no acute pneumonia, small amount of scarring, old rib fractures, , prior gastric bypass, nonspecific mesenteric nodes in the right lower quadrant, but no inflammation about the cecum or abscess. 3. Head CT showed no evidence of acute intracranial disease, minimal chronic microvascular changes. 4. Echocardiogram showed LVH with an EF of 70%, grade 1 left ventricular diastolic dysfunction. Elevated CPK. Abnormal EKG. DIAGNOSES: 1. Chest pain evaluated by cardiology. The pain was relatively noncardiac in nature. Elevation of his CPK was noncardiac. It was consistent with rhabdomyolysis. In regards to his EKG, it was nonspecific, consistent with left ventricular hypertrophy from long-term hypertension, which the echocardiogram did show left ventricular hypertrophy. 2. Rhabdomyolysis, improved. 3. Severe hyponatremia, improved. 4. Hypertension. Continue home medications. 5. Depression. Continue home medications. 6. Physical deconditioning. Patient will be sent home with home health and physical therapy. HOSPITAL COURSE: Mr. Marks is a 56-year-old male with past medical history of rat poisoning causing severe peptic ulcer disease requiring small bowel resection, hypertension, gout, depression and chronic nausea. He stated around 5 p.m. on the day before his admission, he started developing chest pain that radiated down both arms causing tingling, also caused nausea, vomiting and diaphoresis. The pain was intermittent and continued until the morning of his admission. He called the ambulance to bring him to the ED because he was too weak. He also reported abdominal pain in the lower midline area where he does have an old incisional scar. States that this pain is chronic in nature along with chronic nausea since his surgery. Initial evaluation of his sodium count was 110, 2nd set 111. He has not been confused; however, he does have a different affect. He followed all commands. There was no seizure activity. He denies excessive alcohol use, although he does drink beer. He also had an elevated CK greater than 20,000 and a CK-MB of 137, troponin less than 0.01, elevated liver enzymes. He was admitted to the ICU for close observation and trend cardiac enzymes, replete his sodium slowly with a Cardiology and Nephrology consult and serial repeats of his sodium and monitor for altered mental status, confusion. Cardiology felt this was noncardiac in nature and elevation of his CPK is noncardiac. It was consistent with rhabdomyolysis and they strongly recommended a Nephrology consult to help with his hyponatremia. Dr. Gutierrez did assess the patient. His urine osmolality was low at 207 suggestive of delusional hyponatremia. His sodium responded nicely to IV fluids. His CK was improving and they did change him to some dextrose acetate per Renal recommendations. He was able to move out of the ICU to the regular floor. Sodium was improving daily. He was given a dose of sliding scale on 04/29 and again on the day of his discharge. He was noted to be weak. Physical therapy was brought in to work with the patient. They recommended home health with physical therapy and that is being set up at this time. VITAL SIGNS AT TIME OF DISCHARGE: Temperature is 97.7 degrees, heart rate 75, respirations 18, blood pressure 107/72, O2 is 96% on room air. Sodium at time of discharge was 132, his CK trended down to 875. DISCHARGE DIET: Regular. DISCHARGE MEDICATIONS: As per Dr. Clark: 1. Norvasc 5 mg p.o. daily. 2. Baclofen 10 mg p.o. b.i.d. 3. Celexa 40 mg p.o. at bedtime. 4. Hersey 7.5/325, 1 each p.o. q. 4 hours p.r.n. 5. Hyzaar/hydrochlorothiazide 50/12.5 tablet 1 each p.o. daily. 6. Ambien 10 mg tablet 0.5-1 tab p.o. at bedtime p.r.n. FOLLOWUP: Mr. Marks is being discharged back home with home health and physical therapy. He can follow up with his primary care physician, Dr. Kevin Alcala in 1 week. He can return to the ED for any worsening of symptoms. Addendum: During day of discharge patient was working with PT and O2 sat started to drop to mid 80's but after he rest his O2 sat recover faster and goes back to normal. We order an ABG to check oxygen and showed mild elevated CO2. We checked with his insurance and they denied home oxygen. Patient advised about this problem and recommended dont do strenuous exercise. Dictated by DWAINE Faye for aRlf Nazario MD cc: MD Juan Sol Jr, MD MTDD
== END 2017-04-30 15:15 | disposition home health service (06) ==
LOC: ED 07:43 → EDIPHOLD 14:25 → ICU 16:03 → 4N 04-26 13:25
PROVIDERS: ATTEND Internal Medicine

== ENCOUNTER 2018-10-06 16:36 | Inpatient (IN) ==
[2018-10-06] MEDS ORDERED: PEPCID IV ONE (17:06)
[2018-10-06] MEDS ORDERED: SODIUM CHLORIDE 0.9% INJ ONE (17:06)
[2018-10-06] MEDS ORDERED: ZOFRAN IV ONE (17:07)
[2018-10-06] MEDS ORDERED: TORADOL IV ONE (17:07)
[2018-10-06] MEDS ORDERED: NS 1,000 ML IV ONE ×3 (17:08→19:05)
--- NOTE | 2018-10-06 17:44 | Diag Imaging Result Doc PS360 ---
EXAM: CHEST-PORTABLE 10/06/2018 HISTORY: chest pain TECHNIQUE: AP portable upright at 1735 COMMENT: There is platelike atelectasis and/or fibrosis over the left base. The inspiration is less optimal than on 04/09/2013, at which time there was also fibrotic appearing opacity over the hemidiaphragm. IMPRESSION: Left lower lobe fibrosis plus minus atelectasis. Electronically signed by Ezra Mittal 10/06/2018 5:41 PM
[2018-10-06 17:49] LABS: BASO# 0.01 X1000 (0.0-0.2); BASO% 0.1 % (0.0-0.8); EOS# 0.19 X1000 (0.0-0.7); EOS% 2.2 % (0.0-10.0); HEMATOCRIT 39.6 % (42.0-52.0); HEMOGLOBIN 14.9 g/dL (14.0-18.0); IMM GRAN# 0.03 X1000 (0.0-0.04); IMM GRAN% 0.3 % (0.0-0.5); LYMPH# 1.18 X1000 (1.2-3.4); LYMPH% 13.7 % (20.5-51.1); MCH 33.6 PG (27-31); MCHC 37.6 g/dL (33-37); MCV 89.4 FL (81-99); MONO# 0.73 X1000 (0.11-0.59); MONO% 8.5 % (1.7-9.3); MPV 9.2 FL (7.4-10.4); NEUT# 6.45 X1000 (1.4-6.5); NEUT% 75.2 % (42.2-75.2); PLT 434 X1000 (130-400); RBC 4.43 XMIL (4.7-6.1); RDW 11.3 % (11.5-14.5); WBC 8.59 X1000 (4.8-10.8)
[2018-10-06 18:04] LABS: ALB/GLOB RATIO 1.7; ALBUMIN 5.8 g/dL (3.5-5.0); CALCIUM 10.9 mg/dL (8.8-10.2); POTASSIUM 4.6 mmol/L (3.5-5.1); TOTAL BILIRUBIN 1.21 mg/dL (0.20-1.00); TOTAL PROTEIN 9.2 g/dL (6.3-8.3)
--- NOTE | 2018-10-06 19:05 | PROVIDER DOCUMENTATION ---
This chart was entered by Hina Bruner Scribe, acting as scribe for Paige Schmitt MD. HPI-General Adult - General Chief Complaint: Nausea/Vomiting Stated Complaint: NV, CHEST PAIN Time Seen by Provider: 10/06/18 16:51 Source: patient Allergies/Adverse Reactions: Patient Allergies Allergy/AdvReac Type Severity Reaction Status Date / Time No Known Allergies Allergy Verified 10/06/18 16:59 Home Medications: Home Medication List Medication Instructions Recorded Confirmed Last Taken Type Losartan/Hydrochlorothiazide 1 each PO DAILY 04/25/17 10/06/18 10/06/18 History [Hyzaar 50-12.5 Tablet] Zolpidem Tartrate 0.5 - 1 tab PO QHS PRN 04/25/17 10/06/18 10/05/18 History Amlodipine [Norvasc] 10 mg PO DAILY 10/06/18 10/06/18 10/06/18 History Hydrocodone/Acetaminophen [[place] 1 each PO Q8HR 10/06/18 10/06/18 10/06/18 History 10-325 Tablet] Tizanidine HCl 4 mg PO Q8HR 10/06/18 10/06/18 10/06/18 History - History of Present Illness -Gen Adult Nature of Presenting Problems: 57 y/o male presents to ED with N/V, auditory hallucinations and diffuse abdominal pain onset 3 days ago. Pt reports he has had similar episodes previously. Pt is alert and oriented. PSH of abdominal surgery 10 years ago re his small intestine, but he could not tell me any more beyond that. Drank beer last night and threw it up. Location of Pain/Injury: reports: generalized Pain Radiation: reports: no radiation Quality of Pain: reports: aching Severity: reports: mild Onset/Duration: reports: 3 days ago Timing: reports: still present Context/Activities at Onset: reports: none Modifying Factors: worse with: palpation, vomiting Associated Symptoms: reports: nausea, vomiting, other (abdominal pain, auditory hallucinations) Similar Symptoms Previously?: No Recently seen or treated by another doctor?: No Review of Systems - Adult - REVIEW OF SYSTEMS - ADULT Constitutional: denies: chills, fever Eyes: reports: no symptoms reported Ears, Nose, Mouth & Throat: reports: no symptoms reported Cardiovascular: denies: chest pain, palpitations Respiratory: denies: cough, shortness of breath Gastrointestinal: reports: abdominal pain, nausea, vomiting. denies: diarrhea Genitourinary: reports: no symptoms reported Musculoskeletal: denies: back pain, joint pain Integumentary: reports: no symptoms reported Neurological: denies: dizziness/vertigo, seizure Psychiatric: reports: other (auditory hallucinations). denies: suicidal thoughts Endocrine: reports: no symptoms reported Hematologic/Lymphatic: reports: no symptoms reported Allergic/Immunologic: reports: no symptoms reported All Other Systems: Reviewed and Negative Past History - Adult - PAST MEDICAL HISTORY-ADULT Review of Records: reports: Old Records Reviewed, Nursing Assessment Review, Medications Reviewed Major Childhood Illnesses: reports: denies history Cardiovascular: reports: HTN Gastrointestinal: reports: GERD, GI bleed (upper), ulcer Musculoskeletal: reports: arthritis (Gout), chronic pain, other (gout) - PRIOR SURGERIES/PROCEDURES Surgical/Procedure History: reports: bowel surgery, orthopedic (extremity) (R arm), joint replacement (bilateral knees) - IMMUNIZATION STATUS Childhood Immunizations: See Nurse Assessment Flu Vaccine: See Nurse Assessment - FAMILY HISTORY Family History: reviewed, not pertinent - SOCIAL HISTORY Smoking: non-smoker Substance Use: none/never Alcohol Use Frequency: occasionally Living Situation: family Physical Exam-General - PHYSICAL EXAM-ADULT Initial Vital Signs Reviewed: Yes - CONSTITUTIONAL General Appearance: appears well, alert, no apparent distress - EYES Eyes: PERRL/EOMI, pink conjunctivae - HEAD, EARS, NOSE, MOUTH & THROAT HENMT: normocephalic/atraumatic, moist mucous membranes - NECK Neck: non-tender, full range of motion - RESPIRATORY Respiratory: chest non-tender, lungs clear, normal breath sounds - CARDIOVASCULAR Cardiovascular: normal peripheral pulses, regular rate, rhythm - GASTROINTESTINAL (ABDOMEN) Abdominal Exam: guarding (voluntary), tenderness (diffuse), other (decreased bowel sounds diffusely, aged scar midline abdomen longitudinal @ 15 cm). negative: no organomegaly, no pulsatile mass, distended, rigid, rebound - MUSCULOSKELETAL Back Exam: normal inspection Extremity: normal range of motion, non-tender, normal gait Peripheral Pulses: radial (R): 2+, radial (L): 2+ - SKIN Integumentary: normal color, normal turgor, warm/dry - NEUROLOGIC Neurologic: baggage security checker II-XII nml as tested, grossly normal, no motor/sensory deficits - PSYCHIATRIC Psych/Mental Status: normal mood/affect, normal thought content, normal thought process, oriented x 3 Progress - PLAN OF CARE/RESULTS Progress/Plan/Lab Results: Vital Signs - 8 hr 10/06/18 16:56 Temperature 97.9 F Pulse Rate 92 H Respiratory Rate 18 Blood Pressure 157/79 O2 Sat by Pulse Oximetry 100 Pt says sometimes when he has emesis he has yellow fluid, sometimes green fluid , has had episodes of vomiting before since the surgery 10 years ago, no fever, no back pain, has generalized abdominal pain, no bowel movement today difftl not limited to gastritis, CA, pancreatitis, SBO Pt says he was told he might have trouble w his liver and has had pancreatitis before. D/w pt all labs thus far and need for admit [id number] Holden [facility] results current condition pending UA UDS and thought about [facility] RUQ, agreed to admit Result Diagrams: 10/06/18 17:15 10/06/18 17:15 Departure - Departure Date of Disposition Decision: 10/06/18 Time of Disposition Decision: 19:05 DIAGNOSIS: Abdominal pain, Hyponatremia, Abnormal liver function tests Vomiting Qualifiers: Vomiting type: unspecified Vomiting Intractability: unspecified Nausea presence : with nausea Qualified Code(s): R11.2 - Nausea with vomiting, unspecified Disposition: ADMITTED INPATIENT 09 Certified Medical Emergency: Emergent Condition: Good Referrals and Follow-Ups: None,PCP [Primary Care Provider] - - Critical Care Note This patient required my direct & personal management of CC.: No Attestation - Physician/ JASPER Attestation Patient care was provided by Advanced Practice Provider:: No The physician spent face to face time with patient:: Yes Advanced Practice Provider documentation review:: Supervising physician onsite and consulted in the evaluation and care of this patient. The physician did have a face to face encounter with the patient. This chart was documented by the indicated scribe, (Hina Bruner Scribe) and accurately reflects the services I performed and decisions made by me, Paige Schmitt MD, as attested by the provider's signature.
[2018-10-06] MEDS ORDERED: APRESOLINE IV PRN (19:42)
[2018-10-06] MEDS ORDERED: NS 1,000 ML IV SCH ×2 (19:45)
[2018-10-06 19:49] LABS: CK PROFILE > 20000 U/L (24-204)
[2018-10-06] MEDS: PROTONIX IV SCH (19:55)
[2018-10-06 21:31] LABS: URINE SOURCE CLEAN CATCH
[2018-10-06 21:51] LABS: UR CREAT RANDOM 62.3 mg/dL (14-26)
[2018-10-06 21:55] LABS: UR AMPHETAMINES QUAL NONE DETECTED (NONE DETECT); UR BARBITUATES QUAL NONE DETECTED (NONE DETECT); UR BENZODIAZEPIN QUAL NONE DETECTED (NONE DETECT); UR CANNABINOIDS QUAL NONE DETECTED (NONE DETECT); UR COCAINE QUAL NONE DETECTED (NONE DETECT); UR METHADONE QUAL NONE DETECTED (NONE DETECT); UR OPIATES QUAL PRESUMPTIVE POSITIVE (NONE DETECT); UR OXYCODONE QUAL NONE DETECTED (NONE DETECT); UR PCP QUAL NONE DETECTED (NONE DETECT)
[2018-10-06 22:05] LABS: BILIRUBIN URINE NEGATIVE (NEGATIVE); BLOOD URINE LARGE (NEGATIVE); COLOR YELLOW; GLUCOSE URINE NEGATIVE (NEGATIVE); KETONE URINE TRACE mg/dL (NEGATIVE); LEUKOCYTES URINE SMALL (NEGATIVE); NITRITE URINE NEGATIVE (NEGATIVE); PROTEIN URINE 50 mg/dL (NEGATIVE); TURBIDITY URINE HAZY (CLEAR); UROBILINOGEN URINE NORMAL (NORMAL)
[2018-10-06 22:06] LABS: UR EPITHELIAL CELLS <10 /HPF (<10); URINE BACTERIA NEGATIVE /HPF; URINE RBC <10 /HPF (<10); URINE WBC <10 /HPF (<10)
[2018-10-07 00:17] LABS: CALCIUM 9.1 mg/dL (8.8-10.2); CREATININE 1.8 mg/dL (0.7-1.2); POTASSIUM 4.1 mmol/L (3.5-5.1)
[2018-10-07] MEDS ORDERED: NS 1,000 ML IV SCH ×2 (00:30→09:30)
--- NOTE | 2018-10-07 02:25 | HISTORY AND PHYSICAL ---
CHIEF COMPLAINT: Nausea and vomiting. HISTORY OF PRESENT ILLNESS: A 57-year-old male, with a past medical history of rat poisoning, causing severe peptic ulcer disease requiring a small bowel resection, hypertension, gout, depression, nausea and vomiting, which is chronic, previous hospitalization due to severe hyponatremia, dehydration, who presented to the emergency department with a chief complaint of nausea and vomiting for the past 3 days. As per the patient, also he saw a little bit of blood in a few, along with the vomiting. He denies diarrhea, headache, constipation, dizziness, but he has bilateral shoulder pain and generalized cramps, mostly at the level of the upper and lower extremities. This patient states that he has been trying to take his treatment, but sometimes it has been impossible because of the nausea and vomiting. He tried to take his pills with water, and sometimes Diet Mountain Dew. At the emergency department, he was found to be severely hyponatremic at 109, and hypochloremic at 64. Acute kidney injury, with a creatinine of 2, when his baseline is basically 1.1. Elevated LFTs, and the CK level is more than 20,000. Negative troponin. Albumin is 5.8, likely because of his dehydration. Plasma lactate 1.4. The patient already received a bolus of normal saline, and I will continue with IV hydration. I will hold his medications, especially hydrochlorothiazide, that can cause hyponatremia. I will put him on hydralazine as needed for blood pressure, Zofran, and Protonix, and I will monitor the blood sodium every 4 hours to make the correction slowly. He is not confused. He is oriented x3. We will monitor him closely. Nephrology Department will be consulted in the morning. REVIEW OF SYSTEMS: All the 14-point review of systems were reviewed. All of them negative, except as per HPI. PAST MEDICAL HISTORY: Hypertension, peptic ulcer disease secondary to rat poisoning. That caused GI bleed, and he is status post small bowel resection. Also, gout, depression, chronic nausea and chronic abdominal pain, previous hospitalization due to severe hyponatremia and dehydration. PAST SURGICAL HISTORY: Small bowel resection, bilateral total knee replacement, and right arm pin. SOCIAL HISTORY: He denies tobacco. He drinks occasionally, mostly beer. No drugs. FAMILY HISTORY: His son has lymphoma, at the age of 8, now apparently in remission. ALLERGIES: No known allergies. HOME MEDICATIONS: Losartan/hydrochlorothiazide, tizanidine 4 mg p.o. q.8 hours, amlodipine 10 mg p.o. daily, zolpidem 5 mg p.o. p.r.n. at bedtime for sleep, [place] 10, half a tablet every 8 hours as needed. PHYSICAL EXAMINATION: VITAL SIGNS: Temperature 97.9 degrees, pulse 96, respiratory rate 22, blood pressure 137/115, oxygen saturation 99 on room air. HEENT: Head normocephalic. No trauma. PERRLA. His mouth is dry. NECK: Supple. No JVD. Central trachea. CHEST: Clear to auscultation. No wheezing. No rales. ABDOMEN: Soft. Generalized tenderness to palpation, especially around the umbilical scar. He has multiple scars from previous surgeries, with no signs of infection. EXTREMITIES: No edema. No clubbing. No cyanosis. Dry skin. NEUROLOGICAL: The patient is alert and oriented x3. No focal deficits. LABORATORY STUDIES: WBC 8.5, hemoglobin 4.4, hematocrit 39.6, platelets 434,000. Sodium 109, bicarbonate 4.6, chloride 64, bicarbonate 27, BUN 18, creatinine 2, glucose 98, calcium 10.9. Total bilirubin 1.2, AST 695, ALT 208, alkaline phosphatase 9. CK level more than 20,000. Albumin 5.8, protein 9.2. Lipase 24. Lactate 1.4. ASSESSMENT AND PLAN: 1. Severe hyponatremia. This patient looks dehydrated. I do not have a urine sample. He has not voided yet. He already received 1 L of fluid in the emergency department, and I will continue with normal saline at 125 mL per hour. I will monitor the blood sodium every 4 hours. I will monitor for seizure. The chloride also is low. He is really dehydrated. 2. Severe dehydration, as above. 3. Rhabdomyolysis. CK level is elevated, more than 20,000. I will continue with the same management. Bicarbonate level is 27. Continue with IV fluids. 4. Nausea and vomiting. Continue with IV fluids and nausea medication. It looks like the Zofran is working for this patient. 5. Hypertension. I will hold the blood pressure medication for now. I will use hydralazine in case of severe hypertension above 180 mmHg. 6. Depression. We will continue to monitor. He does not look depressed at this moment. 7. History of peptic ulcer disease. I have placed this patient on Protonix twice a day. 8. Elevated LFTs, likely secondary to severe dehydration. I will monitor this closely. I will continue with IV fluids. 9. Acute kidney injury, likely prerenal. Continue with IV fluids. cc: Carmine Munoz MD
[2018-10-07 03:21] LABS: CREATININE 1.6 mg/dL (0.7-1.2); POTASSIUM 4.1 mmol/L (3.5-5.1)
[2018-10-07 06:19] LABS: AGAP 13; ALB/GLOB RATIO 1.5; ALBUMIN 4.6 g/dL (3.5-5.0); ALKALINE PHOSPHATASE 111 U/L (32-122); BUN 17 mg/dL (8-22); CALCIUM 9.3 mg/dL (8.8-10.2); CHLORIDE 81 mmol/L (98-107); COSMO 239; CREATININE 1.5 mg/dL (0.7-1.2); ESTIMATED GFR 58; GLUCOSE 88 mg/dL (70-104); GOT 513 U/L (10-34); GPT 177 U/L (10-44); MAGNESIUM 2.3 mg/dL (1.5-2.7); POTASSIUM 4.2 mmol/L (3.5-5.1); TCO2 24 mmol/L (25-35); TOTAL BILIRUBIN 0.81 mg/dL (0.20-1.00); TOTAL PROTEIN 7.7 g/dL (6.3-8.3)
[2018-10-07 06:20] LABS: SODIUM 118 mmol/L (136-145)
[2018-10-07 06:26] LABS: BASO# 0.01 X1000 (0.0-0.2); BASO% 0.1 % (0.0-0.8); EOS# 0.26 X1000 (0.0-0.7); EOS% 3.9 % (0.0-10.0); HEMATOCRIT 34.5 % (42.0-52.0); HEMOGLOBIN 12.7 g/dL (14.0-18.0); LYMPH# 1.14 X1000 (1.2-3.4); MCH 33.7 PG (27-31); MCHC 36.8 g/dL (33-37); MCV 91.5 FL (81-99); MONO% 10.4 % (1.7-9.3); MPV 9.7 FL (7.4-10.4); NEUT% 68.6 % (42.2-75.2); PLT 322 X1000 (130-400); RBC 3.77 XMIL (4.7-6.1); RDW 11.2 % (11.5-14.5); WBC 6.71 X1000 (4.8-10.8)
[2018-10-07 06:38] LABS: CK PROFILE > 20000 U/L (24-204); CK-MB 74.48 ng/mL (0.0-5.0)
--- NOTE | 2018-10-07 07:25 | Diag Imaging Result Doc PS360 ---
CHEST-PORTABLE - 10/07/2018 INDICATION: dyspnea COMPARISON: 10/06/2018 FINDINGS: There is some stable platelike atelectasis in the left lung base. No focal infiltrates, pneumothorax, or pleural effusion. Heart size is normal. IMPRESSION: No acute disease or change from prior. Electronically signed by Juan Hedrick 10/07/2018 7:23 AM
--- NOTE | 2018-10-07 07:35 | EKG Report ---
Test Performed on : 10/07/2018 07:26:29 AM Test Reason : Chest pain Blood Pressure : / mmHG Vent. Rate : 084 BPM Atrial Rate : 084 BPM P-R Int : 210 ms QRS Dur : 072 ms QT Int : 356 ms P-R-T Axes : 057 030 036 degrees QTc Int : 420 ms Sinus rhythm. with 1st degree AV block. Minimal voltage criteria for LVH, may be normal variant Nonspecific T wave abnormality Abnormal ECG When compared with ECG of 07-OCT-2018 07:25, (Unconfirmed) aberrant conduction. is no longer present Confirmed by Shira MILLER, Rashad Martinez ([id number]) on 10/07/2018 9:41:28 AM
[2018-10-07] MEDS: PROTONIX IV SCH ×2 (07:54→20:30)
[2018-10-07 10:09] LABS: ESTIMATED GFR > 60
[2018-10-07 10:19] LABS: AGAP 14; BUN 16 mg/dL (8-22); CHLORIDE 82 mmol/L (98-107); COSMO 245; CREATININE 1.4 mg/dL (0.7-1.2); GLUCOSE 122 mg/dL (70-104); POTASSIUM 4.2 mmol/L (3.5-5.1); TCO2 24 mmol/L (25-35)
[2018-10-07 10:21] LABS: SODIUM 120 mmol/L (136-145)
[2018-10-07] MEDS ORDERED: BENTYL LIQUID PO PRN (11:22)
--- NOTE | 2018-10-07 12:14 | NEPHROLOGY CONSULTATION ---
DATE: 10/07/2018 REASON FOR ADMISSION: Weakness associated with nausea and vomiting. REASON FOR CONSULT: Hyponatremia with acute kidney injury. CONSULTING PHYSICIAN: Dr. Carmine Munoz. HISTORY OF PRESENT ILLNESS: Mr. Marks is a 57-year-old -[place] male who has been seen by our services approximately 1 year ago for hyponatremia associated with rhabdomyolysis secondary to acute nausea and vomiting. The patient presented this time stating that he has had nausea and vomiting since Saturday evening and states that he has not been able to take anything down much less keep his medications down. He denies any diarrhea. He denies any headache, constipation, blurred vision. No dizziness. No chest pain. No increased work of breathing. He does have some bilateral shoulder discomfort. He states that these are more likely cramps at the level of his shoulder blades. The patient presented to the emergency department and was found to have an acute kidney injury with creatinine of 2. His baseline was noted at 1.1 approximately a year ago. His albumin is up to 5.8 indicating dehydration. Plasma lactate was 1.4. He was severely hyponatremic. Sodium is 109, hypochloremic at 64. The patient was treated with normal saline. He was given 2 L boluses and then placed on normal saline at 75 mL an hour. His sodium has slowly improved. This has been watched every 4 hours. Last recorded was up to 118 from 109. His creatinine has improved with fluid hydration, now down to 1.5. BUN of 17. He is alert. He is oriented. He moves all his extremities well. His blood pressure was slightly elevated. He was given hydralazine, Zofran, and Protonix. PAST MEDICAL HISTORY: Hypertension, peptic ulcer disease secondary to rat poisoning. With previous gastrointestinal bleed, he has a previous small bowel resection and repair, gout, depression, chronic nausea, chronic abdominal pain, previous hyponatremia and rhabdomyolysis associated with dehydration approximately 1 year ago. PAST SURGICAL HISTORY: Small bowel resection, bilateral total knee replacements , right arm pin. SOCIAL HISTORY: He has family who are attentive to his care. Denies tobacco, drinks an occasional beer. No illicit drugs. FAMILY HISTORY: Son has lymphoma at the age of 8; currently in remission. CURRENT ALLERGIES: No known drug allergies. HOME MEDICATIONS: 1. Losartan. 2. Hydrochlorothiazide. 3. Tizanidine. 4. Amlodipine. 5. Zolpidem. 6. Eleele. REVIEW OF SYSTEMS: Review of systems x 10 with pertinent positives listed above in the HPI. LABORATORY DATA: Sodium is 118, potassium 4.2, chloride 81, CO2 of 24. BUN 17 , creatinine 1.5, glucose 88. Anion gap of 13, calcium 9.3, phosphorus 3. Albumin is 4.6, magnesium 2.3. White count 6.71, hemoglobin 12.7, hematocrit 34.5, platelet count 322,000. The patient is positive urine for blood, ketones, leukocytes and protein. He has a total bilirubin Lin of 1.21, AST of 695, ALT of 208. Positive CKs. Negative troponin. His TSH is 0.25. Cortisol level of 15.3. His plasma lactate was 1.4. PHYSICAL EXAMINATION: Vital Signs: Temperature 97.9, blood pressure 123/71, heart rate 83, respirations 18. He is on room air. Last recorded saturation 96%. He has had 3 L in. He has had 0 recorded out though he has 300 mL sitting in his urinal. General: This is a 57-year-old, -[place] male resting quietly in bed. He appears in no acute distress. Skin: Warm and dry. HEENT: Normocephalic, atraumatic. Conjunctivas pale, pink. He has BEAU. Mucous membranes are dry. Neck: Supple. Trachea midline. No evidence of JVD. Cardiovascular : Regular rate and rhythm. No murmur or gallop appreciated. Lungs: Clear to auscultation bilaterally. Equal excursion. Abdomen: Soft, slight tenderness noted. Scar noted to his umbilical area. Genitourinary: Not inspected. Patient has voided per urinal dark yellow urine. Extremities: Have no edema no clubbing or cyanosis. Integumentary: Poor turgor. Skin is dry. Neurological: He is alert and oriented x3. Able to move all extremities well. ASSESSMENT AND PLAN: 1. Hyponatremia. Patient's urine osmolality is low at 24 indicating delusional hyponatremia. His sodium has continued to respond nicely to normal saline at 75 mL an hour. We will continue this on throughout the day, checking his sodium levels every [address] him on a 1 L fluid restriction p.o. Continue to monitor strict I's and O's. 2. Possible rhabdomyolysis. His initial CK level was more than 20,000. We will continue his IV fluids. We will determine if he has any other CKs ordered, and we will order these as a series. I would like to thank you for allowing us to follow with this patient. Dictated by DWAINE Farris for Asad Gutierrez MD Face to face encounter, data reviewed, discussed with Yvette Santa on 10/07/18. I agree with the above assessment and plan of care. cc: DWAINE Farris MD [facility]
--- NOTE | 2018-10-07 14:13 | PROGRESS NOTE ---
DATE: 10/07/2018 INTERVAL HISTORY: Mr. Marks was admitted for intractable nausea, vomiting, abdominal cramps for about 3 days' duration. In the emergency room, he was found to have acute kidney injury and severe hyponatremia. He was started on intravenous fluid resuscitation, and Nephrology was consulted. In the morning time, Nephrology had recommended normal saline resuscitation and fluid restriction since his urine osmolality was low, and his urine sodium was also low. SUBJECTIVE: The patient is complaining of some abdominal cramps. He states that previously he had ingested rat poison for which he had to undergo small bowel resection. According to the documentation, he also has history of alcoholic gastritis and upper gastrointestinal bleed with hematemesis. OBJECTIVE: Current vital signs are temperature 97.4, pulse 90 per minute, respiratory rate 18 per minute, blood pressure 122/70, saturating 96% on room air. General: He does not appear in any acute distress. Oral cavity appears moist. Air entry bilaterally equal. No wheeze, rhonchi, or crackles. Heart sounds are normal. No murmur, rub, or gallop. Abdomen is soft. There is midline scar of previous laparotomy, mild generalized tenderness. Bowel sounds active. No lower extremity edema. DIAGNOSTIC DATA: Labs suggestive of no leukocytosis. Hemoglobin and hematocrit and platelets in acceptable range. Sodium increased from 109 on presentation to 119. His acute kidney injury is also improving. His transaminitis is improving as well. He continues to have elevated CPK. His urine study suggests urine osmolality of 197. Urine sodium of 24. EKG was suggestive of normal sinus rhythm with minimal voltage criteria for left ventricular hypertrophy. IMAGING: No new imaging. ASSESSMENT AND PLAN: 1. Nausea, vomiting and abdominal pain. Differential at this point includes acute gastritis, possibly alcoholic gastritis. The patient has also been taking [id number]-wukpzic pain medications, so NSAID induced gastritis is also a likely possibility. I will continue the patient on pantoprazole IV and ondansetron p.r.n. The patient was counseled about stopping alcohol use. 2. Severe hyponatremia. Fractional excretion of sodium suggests prerenal. Continue intravenous fluids as per Nephrology recommendation. The goal is to have 24 hour correction of close to 8 mEq per liter, and I will adjust normal saline rate accordingly. Monitor sodium every 4 hours. 3. Clinical volume depletion. Intravenous fluid resuscitation as mentioned above. 4. Rhabdomyolysis, likely because of severe nausea and vomiting and severe volume depletion. Follow up with CPK tomorrow. Intravenous fluid resuscitation continue. 5. Transaminitis, likely in the setting of clinical volume depletion plus rhabdomyolysis. Follow up with CMP tomorrow. It is improving. 6. Essential hypertension. Hold home antihypertensive medications for now. He was also listed to be taking hydrochlorothiazide which could also precipitate hyponatremia. 7. History of peptic ulcer disease. Continue intravenous Protonix b.i.d. 8. Acute kidney injury, now improving. Continue intravenous fluids. Follow up with BMP tomorrow. DISPOSITION: The patient remains in the hospital as we monitor his kidney function and sodium. Plan of care was discussed with him, and all of his questions have been answered. cc: Jake Gutierrez MD
[2018-10-07 14:25] LABS: ESTIMATED GFR > 60
[2018-10-07 14:31] LABS: AGAP 15; BUN 14 mg/dL (8-22); CALCIUM 9.2 mg/dL (8.8-10.2); CHLORIDE 83 mmol/L (98-107); COSMO 243; CREATININE 1.3 mg/dL (0.7-1.2); GLUCOSE 108 mg/dL (70-104); POTASSIUM 4.3 mmol/L (3.5-5.1); SODIUM 120 mmol/L (136-145); TCO2 22 mmol/L (25-35)
[2018-10-07 18:18] LABS: ESTIMATED GFR > 60
[2018-10-07 18:19] LABS: AGAP 14; BUN 14 mg/dL (8-22); CALCIUM 9.7 mg/dL (8.8-10.2); CHLORIDE 85 mmol/L (98-107); COSMO 251; CREATININE 1.2 mg/dL (0.7-1.2); GLUCOSE 121 mg/dL (70-104); POTASSIUM 4.4 mmol/L (3.5-5.1); SODIUM 124 mmol/L (136-145); TCO2 25 mmol/L (25-35)
[2018-10-07 18:45] LABS: CK INDEX 0.2 (0.0-2.5); CK-MB 38.54 ng/mL (0.0-5.0)
[2018-10-07] MEDS: NS 1,000 ML IV SCH (20:30)
[2018-10-07 22:39] LABS: ESTIMATED GFR > 60
[2018-10-07 22:49] LABS: AGAP 16; BUN 12 mg/dL (8-22); CALCIUM 9.6 mg/dL (8.8-10.2); CHLORIDE 85 mmol/L (98-107); COSMO 252; CREATININE 1.2 mg/dL (0.7-1.2); GLUCOSE 104 mg/dL (70-104); POTASSIUM 3.9 mmol/L (3.5-5.1); SODIUM 125 mmol/L (136-145); TCO2 24 mmol/L (25-35)
[2018-10-08] MEDS: ULTRAM PO PRN (00:32)
[2018-10-08] MEDS: ZOFRAN IV PRN (00:32)
[2018-10-08 02:06] LABS: URINE SOURCE CATH
[2018-10-08 02:09] LABS: BILIRUBIN URINE NEGATIVE (NEGATIVE); BLOOD URINE NEGATIVE (NEGATIVE); COLOR YELLOW; GLUCOSE URINE NEGATIVE (NEGATIVE); KETONE URINE NEGATIVE (NEGATIVE); LEUKOCYTES URINE SMALL (NEGATIVE); NITRITE URINE NEGATIVE (NEGATIVE); PH URINE 5.5; PROTEIN URINE NEGATIVE (NEGATIVE); TURBIDITY URINE CLEAR (CLEAR); UR EPITHELIAL CELLS <10 /HPF (<10); URINE BACTERIA NEGATIVE /HPF; URINE RBC <10 /HPF (<10); UROBILINOGEN URINE NORMAL (NORMAL)
[2018-10-08 03:11] LABS: ESTIMATED GFR > 60
[2018-10-08 03:14] LABS: AGAP 15; BUN 12 mg/dL (8-22); CALCIUM 9.5 mg/dL (8.8-10.2); CHLORIDE 85 mmol/L (98-107); COSMO 250; CREATININE 1.2 mg/dL (0.7-1.2); GLUCOSE 101 mg/dL (70-104); POTASSIUM 3.7 mmol/L (3.5-5.1); SODIUM 124 mmol/L (136-145); TCO2 24 mmol/L (25-35)
[2018-10-08] MEDS: PROTONIX IV SCH (06:46)
[2018-10-08] MEDS: SODIUM CHLORIDE 0.9% INJ SCH (06:47)
[2018-10-08 06:56] LABS: BASO# 0.01 X1000 (0.0-0.2); BASO% 0.2 % (0.0-0.8); EOS# 0.25 X1000 (0.0-0.7); EOS% 4.8 % (0.0-10.0); HEMOGLOBIN 12.4 g/dL (14.0-18.0); LYMPH# 1.08 X1000 (1.2-3.4); LYMPH% 20.8 % (20.5-51.1); MCH 33.2 PG (27-31); MCHC 35.4 g/dL (33-37); MCV 93.6 FL (81-99); MONO# 0.61 X1000 (0.11-0.59); MONO% 11.8 % (1.7-9.3); MPV 9.2 FL (7.4-10.4); NEUT# 3.23 X1000 (1.4-6.5); NEUT% 62.4 % (42.2-75.2); PLT 315 X1000 (130-400); RBC 3.74 XMIL (4.7-6.1); RDW 11.2 % (11.5-14.5); WBC 5.18 X1000 (4.8-10.8)
[2018-10-08 07:26] LABS: ALB/GLOB RATIO 1.5; ALBUMIN 4.5 g/dL (3.5-5.0); DIRECT BILIRUBIN 0.2 mg/dL (0.00-0.20); TOTAL BILIRUBIN 0.56 mg/dL (0.20-1.00); TOTAL PROTEIN 7.5 g/dL (6.3-8.3)
[2018-10-08 08:08] LABS: CK INDEX 0.2 (0.0-2.5); CK-MB 29.25 ng/mL (0.0-5.0)
[2018-10-08 08:23] LABS: ESTIMATED GFR > 60
[2018-10-08 08:24] LABS: AGAP 15; BUN 10 mg/dL (8-22); CALCIUM 9.9 mg/dL (8.8-10.2); CHLORIDE 85 mmol/L (98-107); COSMO 251; CREATININE 1.2 mg/dL (0.7-1.2); GLUCOSE 98 mg/dL (70-104); POTASSIUM 4.1 mmol/L (3.5-5.1); SODIUM 125 mmol/L (136-145); TCO2 25 mmol/L (25-35)
--- NOTE | 2018-10-08 09:17 | NEPHROLOGY PROGRESS NOTE ---
DATE: 10/08/2018 TIME SEEN: 0715. SUBJECTIVE: Mr. Marks is resting in bed. He denies any pain or increased work of breathing. OBJECTIVE: Vital Signs: Temperature 98.2 degrees, blood pressure 113/68, heart rate is 91, respirations are 12. He is on room air. Last recorded saturation 100%. He has had 1400 in. He has had 2 L out to void. The patient has also positive 3 L given in the ER, not recorded. Labs: Sodium 124, potassium 3.7, chloride is 85, CO2 24, BUN 12, creatinine 1.2, glucose 101, anion gap of 15, calcium 9.5, hemoglobin 12.7 on the . CPK is now down at 17,026. General: This is a 57-year-old male. He is resting quietly in bed. Head of the bed is elevated he appears chronically ill, though no acute distress today. HEENT: Normocephalic , atraumatic. Conjunctiva is pale pink. He has BEAU. Mucous membranes are dry. Neck: Supple. Trachea midline. No evidence of JVD. Cardiovascular: Regular rate and rhythm. No murmur or gallop appreciated. Lungs: Clear to auscultation bilaterally equal excursion on room air. Abdomen: Soft nontender positive bowel sounds. Genitourinary: Not inspected. Patient had a Cummins catheter placed for decreased urinary output and retention, 2 L out during the night. Integumentary: Patient's skin turgor has improved. Warm and dry. Neurological : He is alert to person and place, forgetful to physicians in the room. ASSESSMENT AND PLAN: 1. Hyponatremia. Patient has urine osmolality had been low. He has continued to receive normal saline support. His sodium is 124 with last lab drawn, most recent currently pending. We will continue with normal saline at 75 mL an hour. Continue him on his fluid restriction of 1 L, and monitor labs for sodium levels q.4 hours throughout the day. 2. Rhabdomyolysis. Patient's CPK has dropped to 17,000 from 20,000. We will check a CPK in the morning. This continues to improve more than likely secondary to volume depletion. 3. Chronic kidney disease. Patient returned back to his baseline creatinine of 1.2. I would like to thank you for allowing us to follow with this patient. Dictated by DWAINE Farris for Asad Gutierrez MD Face to face encounter, data reviewed, discussed with Yvette Santa on 10/08/18. I agree with the above assessment and plan of care. cc: DWAINE Farris MD [facility]
[2018-10-08] MEDS: NS 1,000 ML IV SCH (14:57)
--- NOTE | 2018-10-08 15:55 | PROGRESS NOTE ---
DATE: 10/08/2018 OVERNIGHT INTERVAL HISTORY: The patient continued to receive normal saline at lower rate, and he continues to show a rise in serum sodium level. His serum sodium level has increased, almost 18 mEq in about over 48 hours, which is slightly more than ideal. I will follow up with next sodium level. OBJECTIVE: Vital signs: Temperature 98.4 degrees, pulse 81 per minute, blood pressure 130/75, saturating 100% on room air. General examination: On physical examination, does not appear in any acute distress. Oral cavity is moist. Lungs: Air entry bilaterally equal. No wheeze, rhonchi, crackles. Heart: S1, S2 normal. No murmur, rub, or gallop. Abdomen: Soft. There is midline scar of previous laparotomy without any tenderness. Bowel sounds are active. Extremities: No lower extremity edema. Neurologic: He is alert. He is oriented to himself and to me and to place. He is following all commands. No obvious facial droop. Sensation intact all extremities. Motor power 5 in 5 in all extremities. Reflexes 2+. SUBJECTIVE: I was told by the nursing team today that the patient previously had expressed that he was hallucinating and was seeing aliens in the room. When I went inside the room, he started constantly mumbling incomprehensible words. He does not appear in any acute distress, though. I diverted his attention and talked him through, following which he started talking normally. LABS: No leukocytosis, stable hemoglobin and hematocrit, platelet count. Sodium of 127, chloride of 87, normal kidney function. GORDON had resolved. He continues to have improvement in his transaminitis and his rhabdomyolysis is also improving. MICROBIOLOGY: No positive microbiological data to day. IMAGING: No new imaging. ASSESSMENT AND PLAN: 1. Nausea, vomiting, and abdominal pain likely due to acute gastritis, possible alcoholic gastritis or nonsteroidal anti-inflammatory drug- induced gastritis. Continue patient on pantoprazole and ondansetron. His nausea, vomiting, abdominal pain has resolved now. He was counseled yesterday about stopping alcohol use. 2. Severe hyponatremia with fractional excretion of sodium suggestive of prerenal etiology. Nausea, vomiting, use of hydrochlorothiazide could have contributed to it. Continue new intravenous fluid as per Nephrology recommendation. His sodium level had in fact increased slightly higher than expected. I will continue to monitor sodium level. He currently does not have any focal neurological disturbance. My concern for osmotic demyelination syndrome is less. 3. Clinical volume depletion. I will stop intravenous fluids for now considering concern for his confusion, and I will add back tomorrow as tolerated. Continue him on regular diet. 4. Transaminitis likely in the setting of clinical volume depletion and rhabdomyolysis improving. Follow up with liver function test tomorrow. 5. Rhabdomyolysis, likely because of severe nausea, vomiting, poor p.o. intake and clinical volume depletion, improving. Follow up with CPK tomorrow. 6. Essential hypertension. I will restart his home amlodipine as tolerated. I will hold back on his hydrochlorothiazide considering his hyponatremia. 7. History of peptic ulcer disease. Continue intravenous Protonix. 8. Acute kidney injury, improved. 9. Disposition: Patient remains inside intensive care unit for close monitoring of his mental status. TIME SPENT: More than 30 minutes of critical care time was spent in taking care of this patient. Yesterday, patient had told me that he does not have any family members living with him and he lives by himself. He did, however, mentioned that he had 2 sons. Today, I reached out to his friend listed in the chart. However, he was not available and his friend's son had picked up and I had left a message for his friend. cc: Jake Gutierrez MD MTDD
[2018-10-08] MEDS ORDERED: NS 1,000 ML IV SCH (20:00)
[2018-10-09 06:12] LABS: AGAP 16; ALBUMIN 4.7 g/dL (3.5-5.0); BUN 8 mg/dL (8-22); CALCIUM 9.7 mg/dL (8.8-10.2); CHLORIDE 89 mmol/L (98-107); COSMO 257; CREATININE 0.9 mg/dL (0.7-1.2); ESTIMATED GFR > 60; GLUCOSE 96 mg/dL (70-104); PHOSPHORUS 3.8 mg/dL (2.7-4.5); POTASSIUM 3.4 mmol/L (3.5-5.1); SODIUM 129 mmol/L (136-145); TCO2 24 mmol/L (25-35)
[2018-10-09] MEDS: SODIUM CHLORIDE 0.9% INJ SCH ×3 (06:21→19:51)
[2018-10-09 06:45] LABS: ALB/GLOB RATIO 1.4; ALBUMIN 4.8 g/dL (3.5-5.0); DIRECT BILIRUBIN 0.2 mg/dL (0.00-0.20); TOTAL BILIRUBIN 0.5 mg/dL (0.20-1.00); TOTAL PROTEIN 8.2 g/dL (6.3-8.3)
[2018-10-09] MEDS ORDERED: PROTONIX IV SCH (07:00)
[2018-10-09] MEDS ORDERED: KLOR-CON PO ONE (07:14)
[2018-10-09 07:36] LABS: CK INDEX 0.3 (0.0-2.5); CK-MB 17.92 ng/mL (0.0-5.0)
[2018-10-09] MEDS: NORVASC PO SCH (08:00)
--- NOTE | 2018-10-09 08:39 | PROGRESS NOTE ---
DATE: 10/09/2018 SUBJECTIVE: Today, I will stop the normal saline. I will increase the fluid restriction to 1.5 L, continue with his diet. He feels weak but he is not complaining of nausea or vomiting. His urine output is better. I will go ahead and check his sodium level every 4 hours since I am doing all the changes. His potassium level is low. I will monitor. The case has been discussed briefly with nephrology team. OBJECTIVE: Vital Signs: Temperature 98.3 degrees, pulse 79, respiratory rate 15, blood pressure 126/62, oxygen saturation is 99 on room air. HEENT: Head normocephalic. No trauma. PERRLA. Neck: Supple. No JVD. No masses. Central trachea. Chest: Clear to auscultation. No wheezing. No rales. Abdomen: Soft, nontender, nondistended. No hepatosplenomegaly. Extremities: No edema. No clubbing. No cyanosis. Neurological Examination: The patient is alert. He is oriented x3. I do not see any focal deficits. He moves all 4 extremities and he is following commands. Laboratory: Sodium 129, potassium 3.4, chloride 89, bicarbonate 24, BUN 8, creatinine 0.9, glucose 96, calcium 9.7. AST 218, ALT 150, alkaline phosphatase 117. CK level 5445. Albumin 4.8. ASSESSMENT AND PLAN: 1. Nausea, vomiting, and abdominal pain. Probably, this is likely due to gastritis, possible alcoholic gastritis or nonsteroidal anti-inflammatory drugs. This patient has been placed on proton pump inhibitors. We will continue with the same management. He is not complaining of abdominal pain at this moment. 2. Severe hyponatremia. This patient's urine osmolarity was low. He was placed on intravenous fluids which we stop today. We will continue with his diet and fluid restriction of 1.5 L in 24 hours. We will monitor the blood sodium continuously every 4 hours. 3. Dehydration, resolved. 4. Transaminitis, likely secondary to severe dehydration and rhabdomyolysis. This is improving slowly. 5. Rhabdomyolysis, likely secondary to severe dehydration, nausea, and vomiting. This is getting better. I will check the CK in the morning again. 6. History of peptic ulcer disease. Continue with intravenous Protonix which I will increase to twice a day given his recent history of nausea, vomiting, and peptic ulcer disease. 7. Acute kidney injury, resolved. He has good urine output. Nephrology on board. 8. Hypokalemia. I will replace the potassium today. 9. Overall, this patient seems to be better. I will stop the intravenous fluids. We will increase the fluid restriction to 1.5 L. His kidney function is good. His CK and liver functions are getting better as well. We will continue to monitor this closely. CRITICAL CARE TIME: 35 minutes. cc: Carmine Munoz MD
[2018-10-09] MEDS: PROTONIX IV SCH ×2 (09:17→19:51)
--- NOTE | 2018-10-09 15:02 | NEPHROLOGY PROGRESS NOTE ---
DATE: 10/09/2018 DATE AND TIME: Date seen 10/09/2018, time seen 0740. SUBJECTIVE: Mr. Marks is resting quietly in bed. Head of the bed is elevated. He states that he slept well last night. He denies any discomfort. OBJECTIVE: Vital Signs: His most recent vital signs: Temperature 98.3, blood pressure 131/68, heart rate 93, respirations 16, he is on room air. Last recorded saturation 98%. He has had 1990 in, 1700 out to void. LABORATORY DATA: Sodium 129, potassium 3.4, chloride is 89, CO2 24, BUN 8, creatinine 0.9, glucose 96, anion gap 16, calcium 9.7, phosphorus 3.8, albumin 4.7. Previous hemoglobin 12.7 on the . His AST is 218, ALT 150. CPK is down to 5445, continues to drop. PHYSICAL EXAMINATION: General: This is a 57-year-old male who is currently resting quietly in bed. Head of the bed is elevated. He appears in no acute distress. Skin: Warm and dry. HEENT: Normocephalic, atraumatic. Conjunctiva is pale pink. He has BEAU. Mucous membranes dry. Neck: Supple. Trachea midline. No JVD. Cardiovascular: Regular rate and rhythm. No murmur or gallop appreciated. Lungs: Clear to auscultation bilaterally. Equal excursion on room air. Abdomen: Soft, nontender. Positive bowel sounds. Genitourinary: Not inspected. Cummins catheter is in place with adequate urine out. Integumentary: Patient's skin turgor has improved. Warm and dry. Neurologic: Alert and oriented to person and to place only. ASSESSMENT AND PLAN: 1. Hyponatremia. Sodium has returned to 129. We have labs ordered every 4 hours for a sodium level. Patient has had his IV fluids stopped. He remains on a 1.5 L fluid restriction. We will continue to monitor his labs on a daily basis. 2. Acute rhabdomyolysis. His creatinine has returned to his baseline of 1.2. CPK continues to drop from 17,000 to 5000 this a.m. Again, we will continue to monitor and follow. I would like to thank you for allowing us to follow with this patient. Dictated by DWAINE Farris for Asad Gutierrez MD cc: DWAINE Farirs MD
[2018-10-09 15:11] LABS: AGAP 16; BUN 8 mg/dL (8-22); CALCIUM 9.9 mg/dL (8.8-10.2); CHLORIDE 88 mmol/L (98-107); COSMO 253; CREATININE 1.2 mg/dL (0.7-1.2); ESTIMATED GFR > 60; GLUCOSE 129 mg/dL (70-104); POTASSIUM 3.7 mmol/L (3.5-5.1); SODIUM 126 mmol/L (136-145); TCO2 22 mmol/L (25-35)
[2018-10-09 19:43] LABS: AGAP 18; BUN 11 mg/dL (8-22); CALCIUM 9.6 mg/dL (8.8-10.2); CHLORIDE 91 mmol/L (98-107); COSMO 259; CREATININE 1.1 mg/dL (0.7-1.2); ESTIMATED GFR > 60; GLUCOSE 111 mg/dL (70-104); POTASSIUM 3.9 mmol/L (3.5-5.1); SODIUM 129 mmol/L (136-145); TCO2 20 mmol/L (25-35)
[2018-10-09 23:03] LABS: AGAP 20; BUN 14 mg/dL (8-22); CALCIUM 9.4 mg/dL (8.8-10.2); CHLORIDE 90 mmol/L (98-107); COSMO 256; CREATININE 1.2 mg/dL (0.7-1.2); ESTIMATED GFR > 60; GLUCOSE 99 mg/dL (70-104); POTASSIUM 4.2 mmol/L (3.5-5.1); SODIUM 127 mmol/L (136-145); TCO2 17 mmol/L (25-35)
[2018-10-10 03:26] LABS: BASO# 0.02 X1000 (0.0-0.2); BASO% 0.3 % (0.0-0.8); HEMATOCRIT 36.4 % (42.0-52.0); HEMOGLOBIN 12.9 g/dL (14.0-18.0); IMM GRAN# 0.03 X1000 (0.0-0.04); IMM GRAN% 0.4 % (0.0-0.5); LYMPH# 1.86 X1000 (1.2-3.4); LYMPH% 23.4 % (20.5-51.1); MCH 33.8 PG (27-31); MCHC 35.4 g/dL (33-37); MCV 95.3 FL (81-99); MONO# 0.74 X1000 (0.11-0.59); MONO% 9.3 % (1.7-9.3); NEUT% 61.6 % (42.2-75.2); PLT 308 X1000 (130-400); RBC 3.82 XMIL (4.7-6.1); RDW 11.3 % (11.5-14.5); WBC 7.95 X1000 (4.8-10.8)
[2018-10-10 03:44] LABS: ESTIMATED GFR > 60
[2018-10-10 03:49] LABS: AGAP 19; BUN 12 mg/dL (8-22); CALCIUM 9.7 mg/dL (8.8-10.2); CHLORIDE 88 mmol/L (98-107); COSMO 251; GLUCOSE 99 mg/dL (70-104); POTASSIUM 3.9 mmol/L (3.5-5.1); SODIUM 125 mmol/L (136-145); TCO2 18 mmol/L (25-35)
[2018-10-10 05:14] LABS: AGAP 17; ALB/GLOB RATIO 1.4; ALBUMIN 4.7 g/dL (3.5-5.0); ALKALINE PHOSPHATASE 115 U/L (32-122); BUN 12 mg/dL (8-22); CALCIUM 10.2 mg/dL (8.8-10.2); CHLORIDE 88 mmol/L (98-107); COSMO 257; ESTIMATED GFR > 60; GLUCOSE 96 mg/dL (70-104); GOT 138 U/L (10-34); GPT 135 U/L (10-44); PHOSPHORUS 3.4 mg/dL (2.7-4.5); POTASSIUM 3.6 mmol/L (3.5-5.1); SODIUM 128 mmol/L (136-145); TCO2 23 mmol/L (25-35); TOTAL BILIRUBIN 0.46 mg/dL (0.20-1.00); TOTAL PROTEIN 8.1 g/dL (6.3-8.3)
[2018-10-10 05:22] LABS: CK PROFILE 3474 U/L (24-204)
[2018-10-10 05:38] LABS: CK INDEX 0.4 (0.0-2.5); CK-MB 13.95 ng/mL (0.0-5.0)
[2018-10-10] MEDS ORDERED: ATIVAN IV ONE (06:32)
[2018-10-10] MEDS ORDERED: ATIVAN IV PRN (06:36)
[2018-10-10] MEDS ORDERED: KEPPRA 500 MG in NS 100 ML IV ONE (06:39)
--- NOTE | 2018-10-10 08:05 | EKG Report ---
Test Performed on : 10/10/2018 07:47:15 AM Test Reason : Episode of bradycardia Blood Pressure : / mmHG Vent. Rate : 088 BPM Atrial Rate : 088 BPM P-R Int : 180 ms QRS Dur : 078 ms QT Int : 344 ms P-R-T Axes : 061 042 024 degrees QTc Int : 416 ms Normal sinus rhythm. Nonspecific ST and T wave abnormality Abnormal ECG When compared with ECG of 07-OCT-2018 07:26, CO interval has decreased Confirmed by Bethany MILLER, Sacha Martinez ([id number]) on 10/12/2018 5:38:42 PM
[2018-10-10 08:30] LABS: INR 0.95; PROTIME 13.5 Seconds (11.0-16.0)
--- NOTE | 2018-10-10 08:37 | PROGRESS NOTE ---
DATE: 10/10/2018 SUBJECTIVE: This patient had an episode of confusion a couple of hours ago. Apparently his heart rate dropped as well as his oxygen saturation, and he started staring at the wall unresponsive. He was not having any kind of shakiness. Then, apparently he was confused and actually when I talked to him a little bit ago he was oriented to person but not to place or time. He was sleeping but he woke up with stimulation. He seems to be more awake. He is able to move all 4 extremities. I do not see any dysarthria or aphasia or problem talking at all, but he is confused. OBJECTIVE: Vital Signs: Temperature 97.9 degrees, pulse 86, respiratory rate 16, blood pressure 144/77, oxygen saturation 100% on room air. HEENT: Head normocephalic. No trauma. PERRLA. Neck: Supple. No JVD. No masses. Central trachea. Chest: Clear to auscultation. No wheezing. No rales. Abdomen: Soft, nontender, nondistended. No hepatosplenomegaly. Extremities: No edema. No clubbing. No cyanosis. Neurologic: This patient is sleepy but arousable. He is able to move all 4 extremities. He is confused. He is not oriented to time or place. He is following commands. I do not see any focal deficits. LABORATORY: WBC 7.9, hemoglobin 12.9, hematocrit 36.4, platelets 308,000. Sodium 128, potassium 3.6, chloride 98, bicarbonate 23, BUN 12, creatinine 1, glucose 96. Calcium 10.2. Magnesium 2. AST 138, ALT 135, alkaline phosphatase 115. CK level 3474, CK-MB 13.1. ASSESSMENT AND PLAN: 1. Nausea, vomiting and abdominal pain, resolved, probably related to gastritis, probably alcoholic gastritis or nonsteroidal anti-inflammatory drugs. He has been placed on PPIs. Continue with the same management. He is not complaining of abdominal pain at this moment. 2. Severe hyponatremia. Blood sodium today looks stable compared with yesterday, at 128. We will continue with the same management for now. Nephrology Department on board. 3. Isolated episode of unresponsiveness. Neurology Department has been consulted. I am not quite sure if this is related to a seizure disorder, at this moment. The patient was staring at the wall, basically unresponsive. No shakiness or muscle contraction. At the same time it looks like the heart rate dropped to the 30s, but previous to that he had an episode of tachycardia. 4. Possible tachy-vitor arrhythmia. Cardiology department has been consulted. We have a telemetry record of the episode. We will monitor. Electrolytes are stable except blood sodium. 5. Transaminitis, likely secondary to severe dehydration and rhabdomyolysis. This is improving slowly. 6. Rhabdomyolysis. CK is trending down nicely. 7. History of peptic ulcer disease. Continue with IV Protonix, which I increased yesterday to twice a day. 8. Acute kidney injury, resolved. 9. Hypokalemia, resolved. 10. Overall, at this moment this patient's vital signs are stable. I will order an EKG. Recently he has an episode of unresponsiveness but I am not quite sure why. I have requested a Neurology and Cardiology evaluation. I will trend troponins, and I will get a new EKG. CRITICAL CARE TIME: 35 minutes. cc: Carmine Munoz MD
[2018-10-10] MEDS: SODIUM CHLORIDE 0.9% INJ SCH (09:33)
[2018-10-10] MEDS: PROTONIX IV SCH ×2 (09:33→19:48)
[2018-10-10] MEDS: NORVASC PO SCH (09:33)
[2018-10-10 10:27] LABS: ESTIMATED GFR > 60
[2018-10-10 10:31] LABS: AGAP 15; BUN 11 mg/dL (8-22); CALCIUM 10.2 mg/dL (8.8-10.2); CHLORIDE 89 mmol/L (98-107); COSMO 254; GLUCOSE 94 mg/dL (70-104); POTASSIUM 3.7 mmol/L (3.5-5.1); SODIUM 127 mmol/L (136-145); TCO2 23 mmol/L (25-35)
--- NOTE | 2018-10-10 10:49 | CARDIOLOGY CONSULTATION ---
DATE: 10/10/2018 HISTORY OF PRESENT ILLNESS: Cardiology was consulted. Today patient had episode of severe bradyarrhythmia which was transient, had AV dissociation and the heart rate in the 30s, spontaneously came back to sinus rhythm. The patient is currently not having symptoms during this episode. He was slightly disoriented as well. At the present time, his vital signs are stable. During the early part of the hospitalizations, he has not had these problems. From a cardiac standpoint, patient has not had previous cardiac history. He is a 57-year-old Afro- [place] gentleman with past history of rat poisoning, severe peptic ulcer disease, small-bowel resection, hypertension, gout. Has had previous hospitalizations with severe hyponatremia and dehydration. Came with complaints of nausea, vomiting for 3 days prior to his recent hospitalization. He was noted to have an acute kidney injury with rhabdomyolysis. CK is going up to 20,000. Since then, he was also hyponatremic at sodium of 109. This has improved with treatment. The patient does not complain of any chest pain. REVIEW OF SYSTEM: General: A 14-point review of systems was done. GI System: As above. System: There is no dysuria. Cardiovascular System: No chest pains in the past. No history of palpitations or syncope related to known cardiac issues. Central nervous system: No focal weakness to suggest a CVA, TIA. PAST MEDICAL HISTORY: History of hypertension, peptic ulcer disease, GI bleeding status post small bowel resection in the past, gout, depression, chronic nausea and chronic abdominal pain, small-bowel resection, bilateral total knee replacement. HOME MEDICATIONS: Losartan, hydrochlorothiazide, tizanidine, amlodipine, Azulfidine, [place]. SOCIAL HISTORY: He denies tobacco abuse. Drinks alcohol occasionally. PHYSICAL EXAMINATION: Vital Signs: On examination, blood pressure was 130/80. Neck: Jugular venous pressure was normal. Heart: First and second heart sounds were heard. There was no S3 gallop. Respiratory system: Normal air entry. There are no crepitations or rhonchi. Abdomen: Soft, nontender. There was no guarding or rigidity. Bowel sounds were heard. Central nervous system: Alert, oriented. Moving all 4 extremities. Detailed central nervous system examination not performed. LABORATORY EXAMINATION: Today, his sodium is 128. When he was admitted, his electrolytes were sodium of 115, 109. His potassium today 4.1, BUN 10, creatinine 1.2. Creatine kinase 17,026. Troponins negative. When he was admitted, creatinine kinase was greater than 20,000. WBC 7.9, hemoglobin 12.9, hematocrit 36, platelet count of 308. ASSESSMENT AND PLAN: Mr. Ezra Darby is a 57-year-old gentleman with history of hypertension, gastroesophageal reflux disease, admitted with nausea and vomiting. Was noted to be severely hyponatremic and has rhabdomyolysis. From a cardiac standpoint, no previous cardiac history. He had a severe episode of bradycardia with junctional rhythm and AV dissociation. Currently he is in sinus rhythm. No further rhythm disturbances at the present time. RECOMMENDATIONS: 1. We will get an echocardiogram to assess cardiac and valvular function. 2. We will continue to follow up and monitor to see how his rhythm is. As far as etiology, this could be vasovagal. However, during this time he did not have any symptomatology to account for it being vasovagal. Thank you for the consult. We will follow up. cc: Nader Koenig MD
[2018-10-10] MEDS ORDERED: NS 250 ML ONE (11:42)
--- NOTE | 2018-10-10 12:12 | CONSULTATION ---
DATE OF CONSULTATION: 10/10/2018 HISTORY: Mr. Marks is 57 years old and he had a witnessed episode early this morning raising question of partial seizure. By report, he was noted to have bradycardia with hypoxia and poor responsiveness associated with a blank stare and brief saliva pooling at the corners of the mouth. There was not definite motor phenomena. He had a postictal state with lethargy which resolved. There was never focal neurologic feature. Now, Mr. Marks reports he has had this type of episodes many times in the past. He was not able to tell me when this began, but I believe he is reporting spells over several years. He reports episodes have never been associated with fall or injury, but he has had some bruising. He has never had tongue or lip biting, urinary incontinence, definite focal neurologic feature. He believes that he does remain sleepy for a little while after the episodes. He often has headache after an episode. He reports seizure has been considered in the past, but he does not recall taking medication for seizure control. Initially, he reported he might have had EEG at some point, but then seemed uncertain about prior EEG. He was admitted here with sodium 109 attributed to protracted vomiting. He has elevated liver enzymes. CK was greater than 20,000. Sodium has been improved recorded at 127 each of the last 2 days. CK level has come down. Urine drug screen was positive only for opiates on admission. Serum ethanol level was 0 on admission. Review of computer record shows last brain imaging reported in this system was 04/25/[address] of the head showing nothing remarkable. PHYSICAL EXAMINATION: On exam now, Mr. Marks is awake, alert, and mostly attentive. He answered most questions appropriately. He answered some questions inappropriately. He made some other inappropriate comments and then chuckled. He seemed to be aware that he was being inappropriate. He volunteered "you know I'm fooling with you, don't you?" Speech is slightly dysarthric but easily understood. Language function is intact on brief bedside testing. Attempts to test his cognitive function were met with inconsistent answers and I am not certain he does not have a baseline cognitive impairment syndrome. Extraocular movements are full. 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 Facial motility seems a little bit diminished bilaterally, but symmetric. Dentition is poor. Tongue and palate are midline. Strength is good in the arms and legs and is grossly symmetric. I did not test his gait. He has a stocking pattern of sensory loss comparing light touch and pinprick over the ankles. Reflexes are absent at the ankles bilaterally. Plantar response is silent bilaterally. IMPRESSION: Recent episode of staring followed by postictal lethargy and spontaneous recovery. I am not certain about his baseline neurologic status. His history suggests that he may have a partial seizure disorder, but the associated bradycardia and quick recovery make me wonder if this recent episode might have been primarily cardiac. We will get EEG and further plans will depend on that report and on his clinical course. Eventually, might need to consider brain imaging. Thanks for asking Neurology to see Mr. Marks. cc: MD DENISE Moseley IIID
[2018-10-10 14:10] LABS: ESTIMATED GFR > 60
[2018-10-10 14:16] LABS: AGAP 12; BUN 9 mg/dL (8-22); CALCIUM 9.5 mg/dL (8.8-10.2); CHLORIDE 87 mmol/L (98-107); COSMO 249; GLUCOSE 108 mg/dL (70-104); POTASSIUM 3.8 mmol/L (3.5-5.1); SODIUM 124 mmol/L (136-145); TCO2 25 mmol/L (25-35)
[2018-10-10] MEDS: NS 1,000 ML IV SCH (16:21)
--- NOTE | 2018-10-10 16:50 | EEG REPORT ---
DATE: 10/10/2018 EEG NUMBER: [id number] COMMENT: This is a digitally recorded EEG done portably in the ICU on a 57-year-old patient with question of seizure. FINDINGS: Portions of the record are obscured by muscle contraction artifact. Legible portions show polymorphic and rhythmic theta prominent across the hemispheres, mostly 4-6 hertz, with highest amplitude frontally and centrally. There is sometimes beta rhythm which is difficult to distinguish from muscle artifact. There is no sustained entrainment with photic stimulation. Drowsing occurred briefly. Stage 2 sleep was not recorded. Hyperventilation did not alter the record. No definite epileptiform discharge was identified. INTERPRETATION: Abnormal EEG because of mild generalized slowing. CORRELATION: This is indicative of a diffuse encephalopathy and is nonspecific. The absence of epileptiform discharges on a single EEG does not exclude a clinical diagnosis of seizures. cc: Dallas Marsh III, MD
[2018-10-10 19:17] LABS: AGAP 11; BUN 15 mg/dL (8-22); CALCIUM 9.2 mg/dL (8.8-10.2); CHLORIDE 94 mmol/L (98-107); COSMO 261; CREATININE 1.1 mg/dL (0.7-1.2); ESTIMATED GFR > 60; GLUCOSE 112 mg/dL (70-104); POTASSIUM 4.1 mmol/L (3.5-5.1); SODIUM 129 mmol/L (136-145); TCO2 24 mmol/L (25-35)
[2018-10-10 21:38] LABS: AGAP 10; BUN 15 mg/dL (8-22); CALCIUM 9.1 mg/dL (8.8-10.2); CHLORIDE 93 mmol/L (98-107); COSMO 260; CREATININE 1.2 mg/dL (0.7-1.2); ESTIMATED GFR > 60; GLUCOSE 95 mg/dL (70-104); POTASSIUM 4.3 mmol/L (3.5-5.1); SODIUM 129 mmol/L (136-145); TCO2 26 mmol/L (25-35)
[2018-10-11] MEDS: ULTRAM PO PRN (01:19)
--- NOTE | 2018-10-11 01:23 | NEPHROLOGY PROGRESS NOTE ---
DATE: 10/10/2018 SUBJECTIVE: He is asleep but arousable this morning. No new complaints. OBJECTIVE: Vital Signs: Blood pressure 99/67, heart rate 83, respirations 17. General: No acute distress. Skin: Warm and dry. Conjunctivae are pink. Neck: Veins are not distended. Cardiovascular: Heart is regular with S4 gallop. Lungs: Are equal. No crackles. Abdomen: Soft, nontender. Bowel sounds are present. Extremities: Have no edema, clubbing, or cyanosis. IMPRESSION: Hyponatremia. His sodium has been stable in the mid 120s. 124 to 128. His urine osmolality was low when measured. Continue current care. If I can be of further assistance, please do not hesitate to call. cc: Asad Gutierrez MD
[2018-10-11] MEDS: NS 1,000 ML IV SCH (03:57)
[2018-10-11 05:02] LABS: BASO# 0.02 X1000 (0.0-0.2); BASO% 0.3 % (0.0-0.8); EOS# 0.42 X1000 (0.0-0.7); EOS% 5.9 % (0.0-10.0); HEMATOCRIT 30.6 % (42.0-52.0); HEMOGLOBIN 10.4 g/dL (14.0-18.0); LYMPH# 1.96 X1000 (1.2-3.4); LYMPH% 27.4 % (20.5-51.1); MCH 32.7 PG (27-31); MCV 96.2 FL (81-99); MONO# 0.73 X1000 (0.11-0.59); MONO% 10.2 % (1.7-9.3); MPV 9.5 FL (7.4-10.4); NEUT# 4.02 X1000 (1.4-6.5); NEUT% 56.2 % (42.2-75.2); PLT 284 X1000 (130-400); RBC 3.18 XMIL (4.7-6.1); RDW 11.2 % (11.5-14.5); WBC 7.15 X1000 (4.8-10.8)
[2018-10-11 05:44] LABS: AGAP 13; ALBUMIN 4.3 g/dL (3.5-5.0); BUN 12 mg/dL (8-22); CALCIUM 9.2 mg/dL (8.8-10.2); CHLORIDE 94 mmol/L (98-107); COSMO 262; ESTIMATED GFR > 60; GLUCOSE 90 mg/dL (70-104); MAGNESIUM 1.7 mg/dL (1.5-2.7); PHOSPHORUS 3.4 mg/dL (2.7-4.5); POTASSIUM 3.6 mmol/L (3.5-5.1); SODIUM 131 mmol/L (136-145); TCO2 24 mmol/L (25-35)
[2018-10-11] MEDS: SODIUM CHLORIDE 0.9% INJ SCH ×2 (07:56→22:15)
[2018-10-11] MEDS: PROTONIX IV SCH ×2 (07:56→22:15)
[2018-10-11] MEDS: NORVASC PO SCH ×2 (07:56→08:29)
--- NOTE | 2018-10-11 09:26 | PROGRESS NOTE ---
DATE: 10/11/2018 SUBJECTIVE: No more episodes of confusion. No more bradycardia. He feels better. Yesterday the blood sodium dropped to 124, and I put him back on normal saline. The blood sodium now is 131. I have stopped, again, the normal saline, and I will continue with no fluids and fluid restriction of 1.5 L. This patient looks stable, he can be transferred to the medical floor with telemetry. I will continue monitoring the blood sodium every 6 hours. OBJECTIVE: Vital Signs: Temperature 97.7 degrees, pulse 74, respiratory rate 14, blood pressure 137/90, oxygen saturation 98% on room air. HEENT: Head normocephalic. No trauma. PERRLA. Neck: Supple. No JVD. No masses. Central trachea. Chest: Clear to auscultation. No wheezing. No rales. Abdomen: Soft, nontender, nondistended. No hepatosplenomegaly. Extremities: No edema. No clubbing. No cyanosis. Neurologic: At this moment this patient is completely alert. He is oriented x3. No focal deficits. LABORATORY: WBC 7.1, hemoglobin 10.4, hematocrit 30.6, platelets 284,000. Sodium 131, potassium 3.6, chloride 94, bicarbonate 24, BUN 12, creatinine 1. Calcium 9.2. Magnesium 1.7. Troponins negative x4. Albumin 4.3. ASSESSMENT AND PLAN: 1. Nausea, vomiting and abdominal pain, resolved. Probably related with gastritis, probably alcoholic gastritis or NSAID related gastritis. He has been placed on proton pump inhibitors and we will continue with the same management. He is not complaining of abdominal pain at this moment. 2. Severe hyponatremia. Blood sodium today looks better at 131, yesterday dropped to 124 and I put in a little bit of fluid during the night and then the sodium improved. I have placed this patient back on fluid restriction to 1.5 L, and I will stop the fluids. He will be transferred to the floor. 3. Isolated episode of unresponsiveness, questionable seizure. Neurology department evaluated this patient. He did not have any episodes for the past 24 hours. 4. Possible tachybrady arrhythmia. Cardiology department evaluated this patient. No more episodes of bradycardia. Electrolytes are stable except the sodium, which is a little bit low at 131. 5. Transaminitis, likely secondary to severe dehydration and rhabdomyolysis, this is improving. 6. Rhabdomyolysis. CK has been trending down. I will ask for a new CK level tomorrow. 7. Hypokalemia, resolved. 8. Acute kidney injury, resolved. 9. Hypertension, stable. CRITICAL CARE TIME: 35 minutes. cc: Carmine Munoz MD
[2018-10-11 13:52] LABS: AGAP 12; BUN 12 mg/dL (8-22); CALCIUM 9.1 mg/dL (8.8-10.2); CHLORIDE 94 mmol/L (98-107); COSMO 263; ESTIMATED GFR > 60; GLUCOSE 135 mg/dL (70-104); POTASSIUM 3.8 mmol/L (3.5-5.1); SODIUM 130 mmol/L (136-145); TCO2 24 mmol/L (25-35)
[2018-10-11 18:13] LABS: AGAP 13; BUN 12 mg/dL (8-22); CALCIUM 9.2 mg/dL (8.8-10.2); CHLORIDE 94 mmol/L (98-107); COSMO 264; ESTIMATED GFR > 60; GLUCOSE 155 mg/dL (70-104); POTASSIUM 3.8 mmol/L (3.5-5.1); SODIUM 130 mmol/L (136-145); TCO2 23 mmol/L (25-35)
[2018-10-11] MEDS: ZOFRAN IV PRN (22:15)
--- NOTE | 2018-10-11 22:46 | ECHO REPORT ---
ORDER DATE: 10/10/2018 MEASUREMENTS: Left ventricular end-diastolic diameter 2.9, systolic diameter 2.1, septal thickness 1.2, posterior wall thickness 1.1, aortic root 3.2, left atrium 3.2. SUMMARY: 1. Adequate quality study. 2. Aortic valve is trileaflet and opens normally on 2-dimensional images. Peak gradient across aortic valve is less than 10 mmHg. There is mild aortic regurgitation. Mitral, tricuspid and pulmonic valves are without evidence of structural abnormality with trace tricuspid regurgitation. Aortic root is normal in size. 3. Normal left ventricular dimensions demonstrated. Estimated left ejection fraction appears to be at least 60%. No regional wall motion abnormalities evident. Doppler suggests grade 1 left ventricular diastolic dysfunction. Left atrium, right atrium, right ventricle normal in size with grossly preserved right ventricular systolic function. 4. No pericardial effusion. 5. Appearance of inferior vena cava suggests normal central venous pressure. cc: MD Nader Monroe MD
[2018-10-12 02:06] LABS: AGAP 12; BUN 11 mg/dL (8-22); CALCIUM 9.2 mg/dL (8.8-10.2); CHLORIDE 96 mmol/L (98-107); COSMO 264; CREATININE 0.9 mg/dL (0.7-1.2); ESTIMATED GFR > 60; GLUCOSE 95 mg/dL (70-104); POTASSIUM 4.1 mmol/L (3.5-5.1); SODIUM 132 mmol/L (136-145); TCO2 24 mmol/L (25-35)
[2018-10-12 07:29] LABS: BASO# 0.01 X1000 (0.0-0.2); BASO% 0.1 % (0.0-0.8); EOS# 0.38 X1000 (0.0-0.7); EOS% 5.4 % (0.0-10.0); HEMATOCRIT 31.3 % (42.0-52.0); HEMOGLOBIN 10.5 g/dL (14.0-18.0); LYMPH# 1.25 X1000 (1.2-3.4); LYMPH% 17.8 % (20.5-51.1); MCH 32.8 PG (27-31); MCHC 33.5 g/dL (33-37); MCV 97.8 FL (81-99); MONO# 0.78 X1000 (0.11-0.59); MONO% 11.1 % (1.7-9.3); NEUT% 65.6 % (42.2-75.2); PLT 281 X1000 (130-400); RDW 11.4 % (11.5-14.5); WBC 7.02 X1000 (4.8-10.8)
[2018-10-12 07:50] LABS: AGAP 12; ALB/GLOB RATIO 1.6; ALBUMIN 4.1 g/dL (3.5-5.0); ALKALINE PHOSPHATASE 98 U/L (32-122); BUN 10 mg/dL (8-22); CALCIUM 9.6 mg/dL (8.8-10.2); CHLORIDE 97 mmol/L (98-107); COSMO 267; ESTIMATED GFR > 60; GLUCOSE 93 mg/dL (70-104); GOT 48 U/L (10-34); GPT 81 U/L (10-44); POTASSIUM 3.9 mmol/L (3.5-5.1); SODIUM 134 mmol/L (136-145); TCO2 25 mmol/L (25-35); TOTAL BILIRUBIN 0.35 mg/dL (0.20-1.00); TOTAL PROTEIN 6.7 g/dL (6.3-8.3)
[2018-10-12 07:56] LABS: MAGNESIUM 1.7 mg/dL (1.5-2.7)
[2018-10-12] MEDS: PROTONIX IV SCH (08:09)
[2018-10-12] MEDS: NORVASC PO SCH (08:09)
[2018-10-12 08:29] LABS: CK INDEX 0.4 (0.0-2.5); CK-MB 3.52 ng/mL (0.0-5.0)
[2018-10-12 12:09] VITALS: BP 127/66
--- NOTE | 2018-10-14 04:55 | DISCHARGE SUMMARY ---
ADMISSION DATE: 10/06/2018 DISCHARGE DATE: 10/12/2018 DISCHARGE DIAGNOSES: 1. Severe hyponatremia. 2. Nausea, vomiting and abdominal pain. 3. Severe dehydration. 4. Isolated episode of unresponsiveness. 5. Transaminitis. 6. Rhabdomyolysis. 7. Hypokalemia. 8. Acute kidney injury. 9. Hypertension. CONSULTATIONS: Nephrology Department Dr. Gutierrez. Cardiology Department Dr. Koenig. Neurology Department Dr. Marsh. HOSPITAL COURSE: The patient is a 57-year-old male with a past medical history of rat poisoning, causing severe peptic ulcer disease requiring a small bowel resection, hypertension, gout, depression, nausea and vomiting which is chronic. This patient has been hospitalized before due to severe hyponatremia and dehydration, presented to the emergency department and was admitted due to nausea and vomiting for the past 3 days. As per the patient, he also saw a little bit of blood with vomiting. He denies diarrhea, headache, constipation or dizziness, but he has bilateral shoulder pain and generalized cramps mostly at the level of the upper extremities and lower extremities. As per the patient, he has been trying to take his treatment but sometimes it has been possible because of his nausea and vomiting. He tried to take his pills with water and sometimes with Diet Mountain Dew. At the emergency department he was found to be severely hyponatremic at 109, hypochloremic at 64, acute kidney acute kidney injury with a creatinine of 2, where he has baseline is around 1.1, elevated LFTs and a CK level that is more than 20,000, negative troponin. Albumin is 5.8, likely because of his dehydration. Plasma lactate 1.4. The patient already received a bolus of normal saline in the emergency department. I will continue with IV hydration because he looks really dehydrated. I held his medications especially hydrochlorothiazide because these medications can cause hyponatremia. I put him on hydralazine as needed for blood pressure control, also Zofran and Protonix and will monitor the blood sodium every 4 hours to make sure that the correction has been slow. He was not confused. He was oriented x3. Nephrology Department was consulted and will continue with the normal saline until the blood sodium was in the high 120s, then we decided to stop the normal saline and put this patient on fluid restriction since his urine osmolarity was really low. His CK level decreased from more than 20,000 to 900. His kidney function normalized. BUN 11 and creatinine 0.9. During the course of his hospitalization he had an episode of unresponsiveness and bradycardia, apparently the heart rate dropped to the 30s and he was staring at the wall, but he immediately recovered and even though he was a little bit confused he was not having too many symptoms. The Neurology Department evaluated this patient, EEG did not show any seizure activity. The Cardiology Department also evaluated this patient, and they did not recommend any further evaluation, they also evaluated an echocardiogram which I did not see any big abnormalities, possible diastolic 1 dysfunction, but he did not have any more episodes for 2 or 3 more days. After putting this patient on water restriction at 1.5 L per day, the blood sodium was increasing slowly. Then on , we decided to discharge this patient with an acute follow up by his primary care doctor. I will hold hydrochlorothiazide upon discharge as well. I had an extensive conversation with this patient about fluid intake, he cannot drink more than 1.5 L per day and he seems to understand. Apparently also this patient drinks alcohol, but he denied alcohol abuse. Anyway I recommended to stop drinking completely for this patient as well. His last blood sodium was 134, and he was completely alert and oriented x3 and actually he wanted to go home. All the electrolytes where stable including his potassium, his chloride, BUN creatinine, calcium level and magnesium was 1.7. This patient will be discharged under stable medical condition. He was tolerating p.o. He was ambulating. Again I talked to him about drinking just 1.5 L of fluids in 24 hours and also to stay away from alcohol. OBJECTIVE: Vital Signs: Temperature 99 degrees, pulse 94, blood pressure is 127/66, oxygen saturation 100% on room air. HEENT: Head is normocephalic. No trauma. PERRLA. Neck: Supple. No JVD. No masses. Central trachea. Chest: Clear to auscultation. No wheezing. No rales. Abdomen: Soft, nontender, nondistended. No hepatosplenomegaly. Extremities: No edema. No clubbing. No cyanosis. Neurological: The patient was alert and oriented x3. No focal deficits. LABORATORY DATA: WBC 7, hemoglobin 10.5, hematocrit 31.3, platelets 281,000. Sodium 134, potassium 3.9, chloride 97, bicarbonate 25, BUN 10, creatinine 1, glucose 93, calcium 9.6, AST 48, ALT 81, alkaline phosphatase 98. CK level was 900. DISCHARGE MEDICATIONS: 1. Zolpidem 0.5-1 tablet p.o. at bedtime as needed. 2. Tizanidine 4 mg p.o. q.8 hours. 3. [place] 10 one tablet p.o. q.8 hours as needed. 4. Amlodipine 10 mg p.o. daily. 5. Omeprazole 20 mg p.o. daily. 6. Losartan 50 mg p.o. daily. TIME SPENT: Time discharging this patient was 35 minutes. cc: Carmine Munoz MD
== END 2018-10-12 13:30 | disposition home or self-care (01) | DRG 683 ==
LOC: ED 16:36 → EDIPHOLD 21:58 → SUATTDRO 21:58 → ICU 10-07 18:19 → 3N 10-11 10:21
PROVIDERS: ATTEND Internal Medicine
CPT/HCPCS: 36569; 71010; 71045; 80048; 80053; 80069; 80076; 80101; 80301; 80307; 80320; 80324; 80345; 80346; 80353; 80358; 80361; 80365; 81001; 82055; 82533; 82550; 82553; 82570; 83605; 83690; 83735; 83935; 83992; 84100; 84295; 84300; 84443; 84484; 85025; 85610; 87088; 93005; 93010; 93306; 95816; 96361; 96374; 96375; 96376; 99285; A9270; C9113; G0431; G0434; G0479; G0480; G6040; J1885; J1953; J2060; J2405; J7030; J7050; S0028; S0164